=== PATIENT | female | born 1950 | race Caucasian/White ===

== ENCOUNTER 2016-07-12 08:23 | Day surgery (SDC) | payer MEDICARE, MEDICAID ==
[2016-07-12] MEDS ORDERED: LACTATED RINGERS 1,000 ML IV ONE (08:29)
[2016-07-12] MEDS ORDERED: MIDAZOLAM 2 MG/2 ML VIAL IVP ONE (09:50)
[2016-07-12] MEDS ORDERED: fentaNYL 2,500 MCG/50 ML VIAL IV ONE (09:50)
== END 2016-07-12 08:24 | disposition home or self-care (01) ==
PROC: 0DBL8ZX Excision of Transverse Colon, Via Natural or Artificial Opening Endoscopic, Diagnostic (ICD-10-PCS; 2016-07-12)
PROC: 0DBK8ZX Excision of Ascending Colon, Via Natural or Artificial Opening Endoscopic, Diagnostic (ICD-10-PCS; principal; 2016-07-12 09:45)
DX: Z12.11 Encounter for screening for malignant neoplasm of colon (principal); D12.2 Benign neoplasm of ascending colon; D12.3 Benign neoplasm of transverse colon; K64.8 Other hemorrhoids; Z79.82 Long term (current) use of aspirin; I10 Essential (primary) hypertension; E66.9 Obesity, unspecified; Z68.42 Body mass index [BMI] 45.0-49.9, adult; Z90.49 Acquired absence of other specified parts of digestive tract; E78.5 Hyperlipidemia, unspecified; E11.9 Type 2 diabetes mellitus without complications; Z79.84 Long term (current) use of oral hypoglycemic drugs; Z80.9 Family history of malignant neoplasm, unspecified; Z82.49 Family history of ischemic heart disease and other diseases of the circulatory system
CPT/HCPCS: 45385; J3010; J7120

== ENCOUNTER 2017-03-01 08:30 | Outpatient (CLI) | payer MEDICARE, MEDICAID ==
[2017-03-01 12:58] LABS: BASOPHILS # (AUTO) 0.1 10^3/uL (0.0-0.1); BASOPHILS % (AUTO) 0.8 %; EOSINOPHILS # (AUTO) 0.2 10^3/uL (0.0-0.7); HCT - HEMATOCRIT 36.9 % (37.0-47.0); HGB - HEMOGLOBIN 12.1 g/dL (12.0-16.0); LYMPHOCYTES # (AUTO) 1.8 10^3/uL (1.5-3.5); LYMPHOCYTES % (AUTO) 24.4 %; MEAN CORPUSCULAR HEMOGLOBIN 27.5 pg (27.0-31.0); MEAN CORPUSCULAR HGB CONC 32.7 g/dL (32.0-36.0); MEAN CORPUSCULAR VOLUME 84.1 fL (81.0-99.0); MEAN PLATELET VOLUME 7.7 fL (7.9-10.8); MONOCYTES # (AUTO) 0.5 10^3/uL (0.0-1.0); NEUTROPHILS # (AUTO) 4.9 10^3/uL (1.5-6.6); NEUTROPHILS % (AUTO) 65.8 %; RED BLOOD COUNT 4.39 10^6/uL (4.20-5.40); RED CELL DISTRIBUTION WIDTH 14.1 % (12.0-15.0); UNCORRECTED WHITE BLOOD COUNT 7.5 x10^3/uL; WHITE BLOOD COUNT 7.5 x10^3/uL (4.8-10.8)
[2017-03-01 13:30] LABS: ALBUMIN/GLOBULIN RATIO 1.1 (1.0-2.2); BILIRUBIN,TOTAL 0.7 mg/dL (0.2-1.0); BUN - BLOOD UREA NITROGEN 13 mg/dL (6-20); CALCIUM 9.1 mg/dL (8.5-10.3); CARBON DIOXIDE - CO2 28 mmol/L (21-32); CHLORIDE 102 mmol/L (101-111); CHOL/HDL RATIO 2.6 (<4.4); CHOLESTEROL 161 mg/dL; CREATININE 0.9 mg/dL (0.4-1.0); GFR - MDRD 62 (>89); GLUCOSE 116 mg/dL (70-100); HDL CHOLESTEROL 63 mg/dL; LDL/HDL RATIO 1.2 (<4.4); POTASSIUM 3.5 mmol/L (3.5-5.0); SODIUM 139 mmol/L (135-145); TOTAL PROTEIN 7.4 g/dL (6.7-8.2); TRIGLYCERIDES 120 mg/dL; VLDL CHOLESTEROL 24 mg/dL
[2017-03-01 13:34] LABS: HEMOGLOBIN A1C 0.51 g/dL
== END 2017-03-01 08:31 | disposition home or self-care (01) ==
LOC: LAB.WCP 08:30
PROVIDERS: ATTEND Family Medicine
DX: E11.9 Type 2 diabetes mellitus without complications (principal)
CPT/HCPCS: 36415; 80053; 80061; 82043; 83036; 84443; 85025

== ENCOUNTER 2017-03-15 10:43 | Outpatient (CLI) | payer MEDICARE, MEDICAID ==
--- NOTE | 2017-03-18 13:32 | Mammography Report ---
DIGITAL SCREENING MAMMOGRAM: 03/15/2017 CLINICAL INDICATION: A 66-year-old with family history of breast cancer, for screening. COMPARISON: 11/2015, 10/2014, 10/2013, 09/2011, 09/2010. TECHNIQUE: Routine CC and MLO projections were obtained of the breasts. FINDINGS: Scattered fibroglandular tissue is present within the breasts. There are no dominant yola s, suspicious microcalcifications, or secondary signs of malignancy. In comparison to the previous st udies, there are no significant changes. ASSESSMENT: NO MAMMOGRAPHIC EVIDENCE OF MALIGNANCY. NO SIGNIFICANT INTERVAL CHANGES. RECOMMENDATION: Screening mammography is recommended annually. BIRADS category 1 - negative. STANDARD QUALIFYING STATEMENTS 1. This examination was reviewed with the aid of Computed-Aided Detection (CAD). 2. A negative or benign imaging report should not delay biopsy if clinically suspicious findings are present. Consider surgical consultation if warranted. More than 5% of cancers are not identified by i maging. 3. Dense breasts may obscure an underlying neoplasm. JOB #: [id number] EXT JOB #:[id number]
== END 2017-03-15 10:44 | disposition home or self-care (01) ==
LOC: DI.N 10:43
PROVIDERS: ATTEND Family Medicine
DX: Z12.31 Encounter for screening mammogram for malignant neoplasm of breast (principal); Z80.3 Family history of malignant neoplasm of breast
CPT/HCPCS: 77067

== ENCOUNTER 2017-12-23 14:15 | Outpatient (CLI) | payer MEDICARE, MEDICAID ==
[2017-12-23 19:06] LABS: BILIRUBIN,URINE NEGATIVE (NEGATIVE); GLUCOSE, URINE (UA) NEGATIVE (NEGATIVE); KETONES,URINE (UA) NEGATIVE (NEGATIVE); LEUKOCYTE ESTERASE, URINE NEGATIVE (NEGATIVE); NITRITE,URINE NEGATIVE (NEGATIVE); OCCULT BLOOD,URINE MODERATE (NEGATIVE); PROTEIN,URINE TRACE mg/dL (NEGATIVE); UROBILINOGEN,URINE 0.2 (NORMAL) E.U./dL (NORMAL)
[2017-12-23 19:09] LABS: BASOPHILS # (AUTO) 0.1 10^3/uL (0.0-0.1); BASOPHILS % (AUTO) 1.1 %; EOSINOPHILS # (AUTO) 0.1 10^3/uL (0.0-0.7); EOSINOPHILS % (AUTO) 1.4 %; HGB - HEMOGLOBIN 12.5 g/dL (12.0-16.0); LYMPHOCYTES # (AUTO) 1.5 10^3/uL (1.5-3.5); LYMPHOCYTES % (AUTO) 18.9 %; MEAN CORPUSCULAR HEMOGLOBIN 28.3 pg (27.0-31.0); MEAN CORPUSCULAR HGB CONC 33.1 g/dL (32.0-36.0); MEAN CORPUSCULAR VOLUME 85.6 fL (81.0-99.0); MEAN PLATELET VOLUME 8.3 fL (7.9-10.8); MONOCYTES # (AUTO) 0.5 10^3/uL (0.0-1.0); MONOCYTES % (AUTO) 6.1 %; NEUTROPHILS # (AUTO) 5.8 10^3/uL (1.5-6.6); NEUTROPHILS % (AUTO) 72.5 %; PLT - PLATELET COUNT 278 10^3/uL (130-450); RED BLOOD COUNT 4.41 10^6/uL (4.20-5.40)
[2017-12-23 19:47] LABS: ALBUMIN 3.9 g/dL (3.2-5.5); ALBUMIN/GLOBULIN RATIO 1.1 (1.0-2.2); ALKALINE PHOSPHATASE 52 IU/L (42-121); ALT ALANINE AMINOTRANSFERASE 13 IU/L (10-60); AST ASPARTATE AMINOTRANSFERASE 16 IU/L (10-42); BILIRUBIN,TOTAL 0.9 mg/dL (0.2-1.0); BUN - BLOOD UREA NITROGEN 12 mg/dL (6-20); CARBON DIOXIDE - CO2 29 mmol/L (21-32); CHLORIDE 100 mmol/L (101-111); CHOL/HDL RATIO 2.6 (<4.4); CHOLESTEROL 152 mg/dL; GFR - MDRD 55 (>89); GLUCOSE 115 mg/dL (70-100); HDL CHOLESTEROL 58 mg/dL; LDL CHOLESTEROL,CALCULATED 77 mg/dL; LDL/HDL RATIO 1.3 (<4.4); SODIUM 139 mmol/L (135-145); TOTAL PROTEIN 7.5 g/dL (6.7-8.2); VLDL CHOLESTEROL 17 mg/dL
[2017-12-23 20:45] LABS: CLARITY,URINE CLOUDY (CLEAR)
[2017-12-23 20:46] LABS: AMORPHOUS SEDIMENT,UR Marked /LPF; BACTERIA,URINE None Seen /HPF (None Seen); RBC,URINE None Seen /HPF (0-5); SQUAMOUS EPITHELIAL CELL,UR NONE SEEN (<= Few)
[2017-12-23 21:05] LABS: HB2 TOTAL 13.6 g/dL; HEMOGLOBIN A1C 0.65 g/dL; HEMOGLOBIN A1C % 6.5 % (4.6-6.2)
== END 2017-12-23 14:16 ==
LOC: LAB.WCP 14:15
PROVIDERS: ATTEND Family Medicine
DX: E11.9 Type 2 diabetes mellitus without complications (principal); R60.9 Edema, unspecified
CPT/HCPCS: 36415; 80053; 80061; 81001; 83036; 83721; 84443; 85025

== ENCOUNTER 2018-01-02 08:00 | Outpatient (CLI) | payer MEDICARE, MEDICAID ==
[2018-01-02 13:25] LABS: BILIRUBIN,URINE NEGATIVE (NEGATIVE); GLUCOSE, URINE (UA) NEGATIVE (NEGATIVE); KETONES,URINE (UA) NEGATIVE (NEGATIVE); LEUKOCYTE ESTERASE, URINE NEGATIVE (NEGATIVE); NITRITE,URINE NEGATIVE (NEGATIVE); OCCULT BLOOD,URINE SMALL (NEGATIVE); PROTEIN,URINE NEGATIVE (NEGATIVE); UROBILINOGEN,URINE 0.2 (NORMAL) E.U./dL (NORMAL)
[2018-01-02 13:40] LABS: CLARITY,URINE CLOUDY (CLEAR)
[2018-01-02 13:41] LABS: AMORPHOUS SEDIMENT,UR Marked /LPF; BACTERIA,URINE None Seen /HPF (None Seen); RBC,URINE None Seen /HPF (0-5); SQUAMOUS EPITHELIAL CELL,UR NONE SEEN (<= Few)
== END 2018-01-02 08:01 | disposition home or self-care (01) ==
LOC: LAB.WCP 08:00
PROVIDERS: ATTEND Family Medicine
DX: R31.9 Hematuria, unspecified (principal)
CPT/HCPCS: 81001

== ENCOUNTER 2019-01-16 08:00 | Outpatient (CLI) | payer MEDICARE, MEDICAID ==
[2019-01-16 12:38] LABS: BASOPHILS # (AUTO) 0.1 10^3/uL (0.0-0.1); BASOPHILS % (AUTO) 0.7 %; EOSINOPHILS # (AUTO) 0.1 10^3/uL (0.0-0.7); EOSINOPHILS % (AUTO) 1.3 %; HGB - HEMOGLOBIN 11.9 g/dL (12.0-16.0); LYMPHOCYTES # (AUTO) 1.4 10^3/uL (1.5-3.5); LYMPHOCYTES % (AUTO) 17.9 %; MEAN CORPUSCULAR HGB CONC 30.9 g/dL (32.0-36.0); MEAN CORPUSCULAR VOLUME 90.6 fL (81.0-99.0); MEAN PLATELET VOLUME 9.9 fL (7.9-10.8); MONOCYTES # (AUTO) 0.5 10^3/uL (0.0-1.0); NEUTROPHILS # (AUTO) 5.6 10^3/uL (1.5-6.6); NEUTROPHILS % (AUTO) 73.6 %; PLT - PLATELET COUNT 299 10^3/uL (130-450); RED BLOOD COUNT 4.25 10^6/uL (4.20-5.40); RED CELL DISTRIBUTION WIDTH 13.2 % (12.0-15.0); WHITE BLOOD COUNT 7.6 x10^3/uL (4.8-10.8)
[2019-01-16 13:01] LABS: HB2 TOTAL 12.4 g/dL; HEMOGLOBIN A1C 0.52 g/dL
[2019-01-16 13:10] LABS: ALBUMIN 3.7 g/dL (3.2-5.5); ALKALINE PHOSPHATASE 49 IU/L (42-121); ALT ALANINE AMINOTRANSFERASE 10 IU/L (10-60); AST ASPARTATE AMINOTRANSFERASE 14 IU/L (10-42); BILIRUBIN,TOTAL 0.6 mg/dL (0.2-1.0); BUN - BLOOD UREA NITROGEN 15 mg/dL (6-20); CARBON DIOXIDE - CO2 31 mmol/L (21-32); CHLORIDE 100 mmol/L (101-111); CHOL/HDL RATIO 2.7 (<4.4); CHOLESTEROL 168 mg/dL; GFR - MDRD 55 (>89); GLUCOSE 120 mg/dL (70-100); HDL CHOLESTEROL 62 mg/dL; LDL CHOLESTEROL,CALCULATED 86 mg/dL; LDL/HDL RATIO 1.4 (<4.4); SODIUM 140 mmol/L (135-145); TOTAL PROTEIN 7.5 g/dL (6.7-8.2); VLDL CHOLESTEROL 20 mg/dL
== END 2019-01-16 23:59 | disposition home or self-care (01) ==
LOC: LAB.WCP 08:00
PROVIDERS: ATTEND Family Medicine
DX: E11.9 Type 2 diabetes mellitus without complications (principal)
CPT/HCPCS: 36415; 80053; 80061; 83036; 83721; 84443; 85025

== ENCOUNTER 2019-02-09 07:53 | Outpatient (CLI) | payer MEDICARE, MEDICAID ==
--- NOTE | 2019-02-09 16:46 | Mammography Report ---
Reason: ROUTINE MAMMO Procedure Date: 02/09/2019 Accession Number: [id number] / [id number] Procedure: NICK - Screening Mammo w/Mohamud CPT Code: FULL RESULT: EXAM: Screening Mammo w/Mohamud DATE: 02/09/2019 8:31 AM CLINICAL HISTORY: Routine screening. No reported personal history of breast cancer. Family history breast cancer in mother at age 60. TECHNIQUE: (B) - Bilateral CC and MLO views were obtained. COMPARISON: None PARENCHYMAL PATTERN: (A) - The breasts demonstrate scattered fibroglandular densities bilaterally. FINDINGS: Bilateral breasts: There are no suspicious masses, calcifications, or areas of distortion. IMPRESSION: Negative examination. BI-RADS category 1. RECOMMENDATION: (ANNUAL) - Recommend routine annual screening mammography. BI-RADS CATEGORY: (1) - Negative. STANDARD QUALIFYING STATEMENTS: 1. This examination was not reviewed with the aid of Computer-Aided Detection (CAD). 2. A negative or benign imaging report should not preclude biopsy if clinically suspicious findings are present. 3. Dense breasts may obscure an underlying neoplasm. 4. This examination was reviewed with the aid of 3D breast imaging (tomosynthesis).
== END 2019-02-09 07:54 | disposition home or self-care (01) ==
LOC: DI 07:53
DX: Z12.31 Encounter for screening mammogram for malignant neoplasm of breast (principal); Z80.3 Family history of malignant neoplasm of breast
CPT/HCPCS: 77063; 77067

== ENCOUNTER 2019-02-09 07:57 | Outpatient (CLI) | payer MEDICARE, MEDICAID ==
--- NOTE | 2019-02-10 17:06 | DEXA Report ---
Reason: POSTMENOPAUSAL Procedure Date: 02/09/2019 Accession Number: [id number] / [id number] Procedure: DEX - Dexa Spine and/or Hip CPT Code: FULL RESULT: EXAM: Dexa Spine and/or Hip DATE: 02/09/2019 8:50 AM CLINICAL HISTORY: POSTMENOPAUSAL TECHNIQUE: Dual energy x-ray absorptiometry (DXA) was performed on a [email or web address] System. Regions measured are the AP Spine, femoral neck, and if needed forearm. COMPARISON: None. In accordance with the International Society for Clinical Densitometry (ISCD) guidelines, data from previous exams may be reanalyzed using current recommendations and techniques. This is done to allow a more accurate basis for comparison with the current study. FINDINGS: The data for the lumbar spine is as follows: BMD (g/cm/cm) T-SCORE Z-SCORE REGION L1 1.191 0.5 1.0 L2 1.287 0.7 1.2 L3 1.246 0.4 0.9 L4 1.334 1.1 1.6 TOTAL 1.269 0.7 1.2 NOTE: All evaluable vertebrae are used for classification The data for the hip is as follows: BMD (g/cm/cm) T-SCORE Z-SCORE REGION Neck 0.909 -0.9 0.0 TOTAL 1.032 0.2 0.8 NOTE: The femoral neck or total proximal femur, whichever is lowest, is used for classification. IMPRESSION: THE WHO CLASSIFICATION BASED ON THE INTERNATIONAL REFERENCE STANDARD IS NORMAL. THE FRACTURE RISK IS NOT INCREASED. RECOMMENDATION: Patients with diagnosis of osteoporosis or osteopenia should have regular bone mineral density assessment. For those eligible for Medicare, routine testing is allowed once every 2 years. Testing frequency can be increased for patients who have rapidly progressing disease or for those who are receiving medical therapy to restore bone mass. COMMENT: World Health Organization (WHO) definitions for osteoporosis and osteopenia: NORMAL BMD: T-score at -1.0 or higher, fracture risk is low OSTEOPENIA BMD: T-score between -1.0 and -2.5, fracture risk is increased. OSTEOPOROSIS BMD: T-score at -2.5 or lower, fracture risk is high. National Osteoporosis Foundation recommends: 1. Obtain adequate dietary calcium (at least 1200 mg per day) and vitamin D (400-800 international units per day). 2. Participate, as appropriate, in regular weightbearing and muscle-strengthening exercise. 3. Avoid tobacco use and reduce alcohol and caffeine intake. 4. For more detailed information see the website at www.NOF.org.
== END 2019-02-09 07:58 | disposition home or self-care (01) ==
LOC: DI 07:57
PROVIDERS: ATTEND Family Medicine
DX: Z78.0 Asymptomatic menopausal state (principal)
CPT/HCPCS: 77080

== ENCOUNTER 2019-07-06 10:15 | Outpatient (CLI) | payer MEDICARE, MEDICAID ==
[2019-07-06 14:37] LABS: MUDS CUTOFF CONCENTRATIONS CUTOFF CONC BELOW:
[2019-07-06 19:00] LABS: AMPHETAMINE SCREEN,URINE NEGATIVE (NEGATIVE); BENZODIAZEPINES SCREEN, URINE NEGATIVE (NEGATIVE); COCAINE SCREEN URINE NEGATIVE (NEGATIVE); METHADONE SCREEN, URINE NEGATIVE (NEGATIVE); METHAMPHETAMINES SCREEN, URINE NEGATIVE (NEGATIVE); OPIATE SCREEN, URINE POSITIVE (NEGATIVE); OXYCODONE SCREEN, URINE NEGATIVE (NEGATIVE); PROPOXYPHENE SCREEN, URINE NEGATIVE (NEGATIVE); TRICYCLIC ANTIDEPRESSANT,URINE NEGATIVE (NEGATIVE)
== END 2019-07-06 23:59 | disposition home or self-care (01) ==
LOC: LAB.WCP 10:15
PROVIDERS: ATTEND Family Medicine
DX: Z79.891 Long term (current) use of opiate analgesic (principal)
CPT/HCPCS: 80306

== ENCOUNTER 2019-09-29 08:00 | Outpatient (CLI) | payer MEDICARE, MEDICAID | END 2019-09-29 23:59 | disposition home or self-care (01) | LOC: LAB.R 08:00 | PROVIDERS: ATTEND Physician Assistant Medical | DX: L03.116 Cellulitis of left lower limb (principal) | CPT/HCPCS: 87070; 87205 ==

== ENCOUNTER 2019-10-09 14:25 | Outpatient (CLI) | payer MEDICARE, MEDICAID ==
--- NOTE | 2019-10-09 15:25 | XRAY Report ---
Reason: DYSPNEA ON EXERTION Procedure Date: 10/09/2019 Accession Number: [id number] / [id number] Procedure: WCP - Chest 2 View X-Ray CPT Code: 54733 Final Report FULL RESULT: PROCEDURE: Chest 2 View X-Ray INDICATIONS: DYSPNEA ON EXERTION TECHNIQUE: 2 view(s) of the chest. COMPARISON: None. FINDINGS: Surgical changes and devices: None. Lungs and pleura: No pleural effusions or pneumothorax. Lungs are clear. Mediastinum: Mediastinal contours are normal. Heart size is enlarged. Bones and chest wall: No suspicious bony abnormalities. Soft tissues appear unremarkable. IMPRESSION: No acute cardiopulmonary pathology. Reviewed by: Chele Hamilton MD on 10/09/2019 3:23 PM PDT Approved by: Chele Hamilton MD on 10/09/2019 3:23 PM PDT Station ID: [id number]
[2019-10-09 18:48] LABS: BASOPHILS # (AUTO) 0.1 10^3/uL (0.0-0.1); BASOPHILS % (AUTO) 0.7 %; EOSINOPHILS # (AUTO) 0.1 10^3/uL (0.0-0.7); EOSINOPHILS % (AUTO) 1.1 %; HGB - HEMOGLOBIN 11.2 g/dL (12.0-16.0); LYMPHOCYTES # (AUTO) 1.5 10^3/uL (1.5-3.5); LYMPHOCYTES % (AUTO) 16.5 %; MEAN CORPUSCULAR HGB CONC 30.2 g/dL (32.0-36.0); MEAN CORPUSCULAR VOLUME 92.8 fL (81.0-99.0); MEAN PLATELET VOLUME 10.3 fL (7.9-10.8); MONOCYTES # (AUTO) 0.5 10^3/uL (0.0-1.0); NEUTROPHILS # (AUTO) 6.6 10^3/uL (1.5-6.6); NEUTROPHILS % (AUTO) 75.4 %; PLT - PLATELET COUNT 292 10^3/uL (130-450); RED CELL DISTRIBUTION WIDTH 13.4 % (12.0-15.0); WHITE BLOOD COUNT 8.8 x10^3/uL (4.8-10.8)
[2019-10-09 18:49] LABS: HEMOGLOBIN A1C 0.49 g/dL
[2019-10-09 19:04] LABS: BUN - BLOOD UREA NITROGEN 16 mg/dL (6-20); CALCIUM 8.8 mg/dL (8.5-10.3); CARBON DIOXIDE - CO2 29 mmol/L (21-32); CHLORIDE 101 mmol/L (101-111); CHOL/HDL RATIO 2.5 (<4.4); CHOLESTEROL 166 mg/dL; CREATININE 1.1 mg/dL (0.4-1.0); GLUCOSE 108 mg/dL (70-100); HDL CHOLESTEROL 67 mg/dL; LDL CHOLESTEROL,CALCULATED 83 mg/dL; LDL/HDL RATIO 1.2 (<4.4); SODIUM 139 mmol/L (135-145); VLDL CHOLESTEROL 16 mg/dL
[2019-10-09 20:01] LABS: HB2 TOTAL 11.6 g/dL
== END 2019-10-09 14:26 | disposition home or self-care (01) ==
LOC: DI.WCP 14:25
PROVIDERS: ATTEND Family Medicine
DX: R06.09 Other forms of dyspnea (principal); E11.9 Type 2 diabetes mellitus without complications; I10 Essential (primary) hypertension
CPT/HCPCS: 36415; 71046; 80048; 80061; 83036; 83721; 83880; 84443; 85025

== ENCOUNTER 2019-10-24 00:14 | Emergency (ER) | payer MEDICARE, MEDICAID ==
--- NOTE | 2019-10-24 00:19 | ED Physician Documentation ---
History of Present Illness - Stated complaint Stated Complaint: SOA/LEG WOUND - History obtained from History obtained from: Patient (Patient is a 69-year-old female who presents with a chief complaint of shortness of breath and bilateral lower extremity swelling. She is currently being treated for cellulitis with Keflex on her left lower extremity according to the patient she has chronic lower extremity swelling) Review of Systems Constitutional: reports: Reviewed and negative Eyes: reports: Reviewed and negative Ears: reports: Reviewed and negative Nose: reports: Reviewed and negative Throat: reports: Reviewed and negative Cardiac: reports: Pedal edema Respiratory: reports: Dyspnea GI: reports: Reviewed and negative : reports: Reviewed and negative Skin: reports: Reviewed and negative Musculoskeletal: reports: Reviewed and negative Neurologic: reports: Reviewed and negative Psychiatric: reports: Reviewed and negative Endocrine: reports: Reviewed and negative Immunocompromised: reports: Reviewed and negative PD PAST MEDICAL HISTORY - Past Medical History Cardiovascular: Hypertension, High cholesterol, Murmur Respiratory: None Endocrine/Autoimmune: Type 2 diabetes GI: None : None HEENT: None Psych: None Musculoskeletal: Osteoarthritis Derm: None - Past Surgical History General: Cholecystectomy, Appendectomy Ortho: Knee replacement HEENT: Other - Present Medications Home Medications: Ambulatory Orders Medication Instructions Recorded Confirmed Furosemide [Lasix] 80 mg PO DAILY 09/09/14 07/12/16 Hydrocodone/Acetaminophen 1 tab PO Q6H PRN 09/09/14 07/12/16 [Hydrocodon-Acetaminophn 10-325] Metformin HCl 500 mg PO DAILY 09/09/14 07/12/16 Metoprolol Tartrate 50 mg PO BID 09/09/14 07/12/16 Potassium Chloride [K-Dur] 40 meq PO DAILY 09/09/14 07/12/16 Simvastatin 20 mg PO DAILY 09/09/14 07/12/16 Telmisartan [Micardis] 160 mg PO DAILY 09/09/14 07/12/16 Aspirin [Adult Low Dose Aspirin EC] 81 mg ORAL DAILY 07/11/16 07/11/16 - Allergies Allergies/Adverse Reactions: Allergies Allergy/AdvReac Type Severity Reaction Status Date / Time nystatin Allergy Severe Edema Verified 10/24/19 00:18 lisinopril AdvReac Intermediate Cough Verified 10/24/19 00:18 PD ED PE NORMAL - Vitals Vital signs reviewed: Yes - General General: Alert and oriented X 3, No acute distress, Other (Morbidly obese 69-year-old female in no distress) - HEENT HEENT: PERRL - Neck Neck: Supple, no meningeal sign, No JVD, No bruit - Cardiac Cardiac: RRR, No murmur, Strong equal pulses - Respiratory Respiratory: No respiratory distress, Clear bilaterally, Other (tachypneic, mild crackles at the bases) - Abdomen Abdomen: Normal bowel sounds, Soft, Non tender, Non distended, Other (Obese, no midline abdominal pulsatile mass is) - Derm Derm: Warm and dry - Extremities Extremities: Other (3+ pitting edema that is symmetrical to bilateral lower extremities diffuse chronic venous stasis changes there is honey crusted lesions on the posterior aspect of the left calf.) - Neuro Neuro: Alert and oriented X 3 - Psych Psych: Normal mood, Normal affect Results - Vitals Vitals: Vital Signs - 24 hr 10/24/19 10/24/19 10/24/19 00:18 00:35 00:42 Temperature 36.6 C Heart Rate 89 78 76 Respiratory 20 18 18 Rate Blood Pressure 165/100 H 111/86 H 111/86 H O2 Saturation 100 100 100 10/24/19 10/24/19 01:23 01:59 Temperature Heart Rate 74 81 Respiratory 17 20 Rate Blood Pressure 174/69 H 149/86 H O2 Saturation 100 100 Oxygen O2 Source [] Room air O2 Source Room air - EKG (time done) 00:55 Rate: Other (no stemi) - Labs Labs: Laboratory Tests 10/24/19 10/24/19 10/24/19 00:30 00:30 00:30 WBC 10.2 RBC 4.03 L Hgb 11.7 L Hct 37.1 MCV 92.1 MCH 29.0 MCHC 31.5 L RDW 12.8 Plt Count 269 MPV 9.8 Neut # (Auto) 7.5 H Lymph # (Auto) 1.9 Mclennan # (Auto) 0.6 Eos # (Auto) 0.2 Baso # (Auto) 0.1 Absolute Nucleated RBC 0.00 Nucleated RBC % 0.0 PT 11.3 INR 1.0 APTT 31.8 Sodium 137 Potassium 3.5 Chloride 97 L Carbon Dioxide 30 Anion Gap 10.0 BUN 19 Creatinine 1.4 H Estimated GFR (MDRD) 37 L Glucose 130 H Calcium 9.1 Magnesium 2.1 Total Bilirubin 0.3 AST 15 ALT 12 Alkaline Phosphatase 59 Total Creatine Kinase 55 Troponin I High Sens B-Natriuretic Peptide Total Protein 7.8 Albumin 4.0 Globulin 3.8 Albumin/Globulin Ratio 1.1 Lipase 27 TSH Urine Color Urine Clarity Urine pH Ur Specific Selmer Urine Protein Urine Glucose (UA) Urine Ketones Urine Occult Blood Urine Nitrite Urine Bilirubin Urine Urobilinogen Ur Leukocyte Esterase Urine RBC Urine WBC Ur Squamous Epith Cells Urine Bacteria Ur Microscopic Review Urine Culture Comments Ethyl Alcohol < 5.0 10/24/19 10/24/19 10/24/19 00:30 00:30 00:30 WBC RBC Hgb Hct MCV MCH MCHC RDW Plt Count MPV Neut # (Auto) Lymph # (Auto) Mclennan # (Auto) Eos # (Auto) Baso # (Auto) Absolute Nucleated RBC Nucleated RBC % PT INR APTT Sodium Potassium Chloride Carbon Dioxide Anion Gap BUN Creatinine Estimated GFR (MDRD) Glucose Calcium Magnesium Total Bilirubin AST ALT Alkaline Phosphatase Total Creatine Kinase Troponin I High Sens 9.2 B-Natriuretic Peptide 173 H Total Protein Albumin Globulin Albumin/Globulin Ratio Lipase TSH 2.47 Urine Color Urine Clarity Urine pH Ur Specific Selmer Urine Protein Urine Glucose (UA) Urine Ketones Urine Occult Blood Urine Nitrite Urine Bilirubin Urine Urobilinogen Ur Leukocyte Esterase Urine RBC Urine WBC Ur Squamous Epith Cells Urine Bacteria Ur Microscopic Review Urine Culture Comments Ethyl Alcohol 10/24/19 01:20 WBC RBC Hgb Hct MCV MCH MCHC RDW Plt Count MPV Neut # (Auto) Lymph # (Auto) Mclennan # (Auto) Eos # (Auto) Baso # (Auto) Absolute Nucleated RBC Nucleated RBC % PT INR APTT Sodium Potassium Chloride Carbon Dioxide Anion Gap BUN Creatinine Estimated GFR (MDRD) Glucose Calcium Magnesium Total Bilirubin AST ALT Alkaline Phosphatase Total Creatine Kinase Troponin I High Sens B-Natriuretic Peptide Total Protein Albumin Globulin Albumin/Globulin Ratio Lipase TSH Urine Color YELLOW Urine Clarity CLEAR Urine pH 6.5 Ur Specific Selmer 1.020 Urine Protein 100 H Urine Glucose (UA) NEGATIVE Urine Ketones TRACE Urine Occult Blood LARGE H Urine Nitrite NEGATIVE Urine Bilirubin NEGATIVE Urine Urobilinogen 1 (NORMAL) Ur Leukocyte Esterase NEGATIVE Urine RBC 6-10 H Urine WBC 0-3 Ur Squamous Epith Cells RARE Squamous Urine Bacteria Rare Ur Microscopic Review INDICATED Urine Culture Comments NOT INDICATED Ethyl Alcohol PD MEDICAL DECISION MAKING - ED course Complexity details: considered differential (chf) Departure - Departure Disposition: 01 Home, Self Care Clinical Impression: Congestive heart failure Qualifiers: Heart failure type: other Qualified Code(s): I50.9 - Heart failure, unspecified Condition: Stable Instructions: Heart Failure Dc Follow-Up: Vanesa Ruff DO [Primary Care Provider] - Tomorrow Comments: Continue to take your medications as directed by your primary care provider. Call your primary care provider on Saturday for follow-up.
[2019-10-24 01:01] LABS: BASOPHILS # (AUTO) 0.1 10^3/uL (0.0-0.1); BASOPHILS % (AUTO) 0.6 %; EOSINOPHILS # (AUTO) 0.2 10^3/uL (0.0-0.7); EOSINOPHILS % (AUTO) 1.9 %; HGB - HEMOGLOBIN 11.7 g/dL (12.0-16.0); LYMPHOCYTES # (AUTO) 1.9 10^3/uL (1.5-3.5); LYMPHOCYTES % (AUTO) 18.4 %; MEAN CORPUSCULAR HGB CONC 31.5 g/dL (32.0-36.0); MEAN CORPUSCULAR VOLUME 92.1 fL (81.0-99.0); MEAN PLATELET VOLUME 9.8 fL (7.9-10.8); MONOCYTES # (AUTO) 0.6 10^3/uL (0.0-1.0); MONOCYTES % (AUTO) 5.5 %; NEUTROPHILS # (AUTO) 7.5 10^3/uL (1.5-6.6); NEUTROPHILS % (AUTO) 73.1 %; PLT - PLATELET COUNT 269 10^3/uL (130-450); RED BLOOD COUNT 4.03 10^6/uL (4.20-5.40); RED CELL DISTRIBUTION WIDTH 12.8 % (12.0-15.0); WHITE BLOOD COUNT 10.2 x10^3/uL (4.8-10.8)
[2019-10-24 01:11] LABS: PT - PROTHROMBIN TIME 11.3 secs (9.9-12.6)
[2019-10-24 01:12] LABS: ALBUMIN/GLOBULIN RATIO 1.1 (1.0-2.2); ALKALINE PHOSPHATASE 59 IU/L (42-121); ALT ALANINE AMINOTRANSFERASE 12 IU/L (10-60); AST ASPARTATE AMINOTRANSFERASE 15 IU/L (10-42); BILIRUBIN,TOTAL 0.3 mg/dL (0.2-1.0); BUN - BLOOD UREA NITROGEN 19 mg/dL (6-20); CALCIUM 9.1 mg/dL (8.5-10.3); CARBON DIOXIDE - CO2 30 mmol/L (21-32); CHLORIDE 97 mmol/L (101-111); CK- CREATINE KINASE 55 IU/L (22-269); CREATININE 1.4 mg/dL (0.4-1.0); GLUCOSE 130 mg/dL (70-100); LIPASE 27 U/L (22-51); MAGNESIUM 2.1 mg/dL (1.7-2.8); SODIUM 137 mmol/L (135-145); TOTAL PROTEIN 7.8 g/dL (6.7-8.2)
[2019-10-24 01:19] LABS: PARTIAL THROMBOPLASTIN TIME 31.8 secs (24.9-33.3)
[2019-10-24] MEDS ORDERED: FUROSEMIDE 40 MG/4 ML VIAL IVP STA (01:48)
[2019-10-24 01:56] LABS: BILIRUBIN,URINE NEGATIVE (NEGATIVE); GLUCOSE, URINE (UA) NEGATIVE (NEGATIVE); KETONES,URINE (UA) TRACE mg/dL (NEGATIVE); LEUKOCYTE ESTERASE, URINE NEGATIVE (NEGATIVE); NITRITE,URINE NEGATIVE (NEGATIVE); OCCULT BLOOD,URINE LARGE (NEGATIVE); PH,URINE 6.5 PH (5.0-7.5); PROTEIN,URINE 100 mg/dL (NEGATIVE); UROBILINOGEN,URINE 1 (NORMAL) E.U./dL (NORMAL)
[2019-10-24 02:02] LABS: CLARITY,URINE CLEAR (CLEAR)
[2019-10-24 02:12] LABS: BACTERIA,URINE Rare /HPF (None Seen); SQUAMOUS EPITHELIAL CELL,UR RARE Squamous (<= Few)
[2019-10-24 02:33] VITALS: BP 160/81
--- NOTE | 2019-10-24 09:15 | XRAY Report ---
PROCEDURE: Chest 1 View X-Ray INDICATIONS: sob TECHNIQUE: One view of the chest was acquired. COMPARISON: 10/09/2019 FINDINGS: Surgical changes and devices: None. Lungs and pleura: No pleural effusions or pneumothorax. Mild pulmonary vascular congestion and inter stitial edema is seen. No focal infiltrate. Mediastinum: Mediastinal contours appear normal. Heart size is enlarged. Bones and chest wall: No suspicious bony lesions. Overlying soft tissues appear unremarkable. IMPRESSION: Mild CHF changes. No focal infiltrate. No discrepancies. Reviewed by: Chele Hamilton MD on 10/24/2019 9:13 AM PDT Approved by: Chele Hamilton MD on 10/24/2019 9:13 AM PDT Station ID: [id number]
== END 2019-10-24 02:33 | disposition home or self-care (01) ==
LOC: ED 00:14
DX: I11.0 Hypertensive heart disease with heart failure (principal); I50.9 Heart failure, unspecified; I87.8 Other specified disorders of veins; L03.116 Cellulitis of left lower limb; E11.9 Type 2 diabetes mellitus without complications; Z79.84 Long term (current) use of oral hypoglycemic drugs; Z79.82 Long term (current) use of aspirin; E66.01 Morbid (severe) obesity due to excess calories; Z68.43 Body mass index [BMI] 50.0-59.9, adult
CPT/HCPCS: 36415; 71045; 80053; 80320; 81001; 81003; 82550; 83690; 83735; 83880; 84443; 84484; 85025; 85610; 85730; 87086; 93005; 96374; 99284

== ENCOUNTER 2019-11-10 10:02 | Outpatient (CLI) | payer MEDICARE, MEDICAID | END 2019-11-10 10:03 | disposition home or self-care (01) | LOC: DI 10:02 | PROVIDERS: ATTEND Family Medicine | DX: R06.09 Other forms of dyspnea (principal); I08.0 Rheumatic disorders of both mitral and aortic valves; I27.20 Pulmonary hypertension, unspecified | CPT/HCPCS: 93306 ==

== ENCOUNTER 2019-12-10 10:36 | Outpatient (CLI) | payer MEDICARE, MEDICAID ==
[2019-12-10] MEDS ORDERED: REGADENOSON 0.4 MG/5 ML SYRINGE IVP ONE (13:35)
--- NOTE | 2019-12-10 15:03 | CARDIAC PROCEDURE NOTE ---
DATE OF SERVICE: 12/10/2019 Physician: Alexa Orellana MD, FACC INDICATIONS Dyspnea on exertion, diabetes. CARDIAC RISK FACTORS Morbid obesity, diabetes, family history of heart disease, elevated cholesterol, hypertension, and advanced age. DESCRIPTION OF PROCEDURE After signing informed consent, the patient underwent a Lexiscan pharmaceutical stress test with nuclear myocardial perfusion imaging. RESTING HEART RATE: 69. PEAK HEART RATE: 94. RESTING BLOOD PRESSURE: 125/70. PEAK BLOOD PRESSURE: 146/70. Lexiscan was infused per protocol. The patient had brief shortness of breath and brief epigastric pressure, she had no chest pain or other symptoms. Oxygen saturation was 95-99% on room air throughout the test. RESTING EKG: Normal sinus rhythm, rate 69, PVC noted, otherwise within normal limits. EKG AT PEAK: No new ST segment or T-wave changes. SUMMARY 1. Essentially normal resting electrocardiogram except for a premature ventricular contraction. 2. No ischemic changes by EKG criteria on this pharmaceutical stress test. 3. Nuclear images reported separately. 4. This patient's cardiac risk based on all the above: Moderate. TD: 12/10/2019 14:39 MTDD
--- NOTE | 2019-12-13 13:24 | Nuclear Medicine Report ---
PROCEDURE: Rest and exercise myocardial perfusion SPECT with gated imaging and ejection fraction INDICATIONS: VASQUEZ, OBESITY, DM RADIOPHARMACEUTICAL: 20.0 mCi Tc-99m Myoview IV at rest and 21.7 mCi Tc-99m Myoview IV at peak exerc ise. A [id number] was performed. TECHNIQUE: Radiopharmaceutical was injected at peak stress test, and also at rest. SPECT images wer e obtained. SPECT myocardial perfusion images were displayed in short axis, horizontal long axis, an d vertical long axis views. Gated images were reviewed using Auto[employer] software. COMPARISON: None available. FINDINGS: Raw data: There is good myocardial labeling by radiotracer. No significant motion artifacts. Lung- to-heart ratio is (normal is less than 0.38 for tetrafosmin tracer). Left ventricle function: Gated images demonstrate normal left ventricle wall thickening. No segment al wall motion abnormality. No transient ischemic dilation. The left ventricle resting end-diastolic volume is normal. Left ventricle stress ejection fraction is >70%; normal values are above 45%. Myocardial perfusion: There is normal distribution of activity in the left upper myocardium. No rev ersible fixed perfusion defects to suggest myocardial ischemia or infarct. IMPRESSION: 1. Normal myocardial perfusion images. 2. Normal left ventricular volume and systolic function. PQRS ATTESTATIONS: Measure 322 - Is this imaging test primarily performed on a low-risk surgery patient for preoperative evaluation within 30 days preceding their low-risk non-cardiac surgery? Low-risk surgery is defined as cardiac or myocardial infarction less than 1%, including (but not limited to) endoscopic pr ocedures, superficial procedures, cataract surgery, and excisional breast surgery: Answer: No Measure 323 - Is this imaging test performed primarily for the monitoring of an asymptomatic patient who had percutaneous coronary intervention on the visit date or within 2 years of the visit date? An swer: No Measure 324 - Is this imaging test performed primarily for the initial detection and risk assessment on an asymptomatic, low coronary heart disease patient? Low CHD risk definition = clinicians should consider the maximum number of available patient factors used to estimate risk based on Vaughn (A TP III criteria), typically age, gender, diabetes, smoking status, and use of blood pressure medicati on, and integrate age appropriate estimates for missing elements, such as LDL or standard blood press ure. Answer: No Reviewed by: Javier Olsen MD on 12/13/2019 1:22 PM PDT Approved by: Javier Olsen MD on 12/13/2019 1:22 PM PDT Station ID: [id number]
== END 2019-12-10 10:37 | disposition home or self-care (01) ==
LOC: DI 10:36
PROVIDERS: ATTEND Family Medicine
DX: R06.09 Other forms of dyspnea (principal); E66.01 Morbid (severe) obesity due to excess calories; E11.9 Type 2 diabetes mellitus without complications; I10 Essential (primary) hypertension; E78.00 Pure hypercholesterolemia, unspecified; Z82.49 Family history of ischemic heart disease and other diseases of the circulatory system
CPT/HCPCS: 78452; 93016; 93017; 93018; A9500; J2785

== ENCOUNTER 2020-04-26 08:00 | Outpatient (CLI) | payer MEDICARE, MEDICAID ==
[2020-04-26 13:53] LABS: ALBUMIN 3.7 g/dL (3.2-5.5); ALKALINE PHOSPHATASE 56 IU/L (42-121); ALT ALANINE AMINOTRANSFERASE 11 IU/L (10-60); AST ASPARTATE AMINOTRANSFERASE 16 IU/L (10-42); BILIRUBIN,TOTAL 0.6 mg/dL (0.2-1.0); BUN - BLOOD UREA NITROGEN 16 mg/dL (6-20); CALCIUM 9.1 mg/dL (8.5-10.3); CARBON DIOXIDE - CO2 28 mmol/L (21-32); CHLORIDE 101 mmol/L (101-111); CHOL/HDL RATIO 2.9 (<4.4); CHOLESTEROL 170 mg/dL; CREATININE 0.9 mg/dL (0.4-1.0); GLUCOSE 106 mg/dL (70-100); HDL CHOLESTEROL 59 mg/dL; LDL CHOLESTEROL,CALCULATED 79 mg/dL; LDL/HDL RATIO 1.3 (<4.4); SODIUM 141 mmol/L (135-145); TOTAL PROTEIN 7.4 g/dL (6.7-8.2); VLDL CHOLESTEROL 32 mg/dL
[2020-04-26 14:05] LABS: HEMOGLOBIN A1c% 5.7 % (4.27-6.07)
[2020-04-26 14:08] LABS: CREATININE,URINE 322.8 mg/dL; MICROALBUM/CREATININE RATIO,UR 6.8 ug/mg (<30.0); MICROALBUMIN,URINE 2.2 mg/dL (0-300.0)
== END 2020-04-26 23:59 | disposition home or self-care (01) ==
LOC: LAB.WCP 08:00
PROVIDERS: ATTEND Physician Assistant Medical
DX: E11.9 Type 2 diabetes mellitus without complications (principal)
CPT/HCPCS: 36415; 80053; 80061; 82043; 82570; 83036; 83721

== ENCOUNTER 2020-06-21 11:18 | Outpatient (CLI) | payer MEDICARE, MEDICAID ==
--- NOTE | 2020-06-21 16:18 | XRAY Report ---
PROCEDURE: Hand 3 View BILAT INDICATIONS: NECK PAIN LOW BACK PAIN, ARTHRITIS HAND TECHNIQUE: 2 views of the hand(s) acquired. COMPARISON: None FINDINGS: Bones: No fractures or dislocations. No suspicious bony lesions. There are moderate to severe bila teral IP degenerative narrowing. The left hand demonstrates most severe narrowing at the third and fi fth DIP joints with areas of subchondral/periarticular lucency. Similar less prominent appearance is noted at the other digits. The right hand demonstrates most severe narrowing at the DIP joints of the third through fifth digits with small periarticular osteophytes as well as paratracheal or lucencies . Additional areas of scattered lucency are also noted at the IP joints. Soft tissues: No suspicious soft tissue calcifications. IMPRESSION: 1. Bilateral areas of IP arthritic narrowing with areas of osteophyte and subchondral/periarticular l ucencies. The latter could be related to erosions versus subchondral cyst. Reviewed by: Virginie Figueroa MD on 06/21/2020 4:16 PM [facility] [place] Approved by: Virginie Figueroa MD on 06/21/2020 4:16 PM [facility] [place] Station ID: [id number]
--- NOTE | 2020-06-21 16:18 | XRAY Report ---
PROCEDURE: Cervical Spine 2 View INDICATIONS: NECK PAIN LOW BACK PAIN, ARTHRITIS HAND TECHNIQUE: 2 view(s) of the cervical spine were acquired. COMPARISON: None. FINDINGS: Bones: No fractures or dislocations to the C7-T1 level. The lateral masses of C1 appear intact on t he odontoid view. No suspicious bony lesions. There is mild disc space narrowing at C6-7, minimal t o mild throughout the remainder of the cervical spine. Multilevel uncovertebral arthropathy is presen t. No erosions are noted. Soft tissues: No prevertebral soft tissue swelling. IMPRESSION: Degenerative changes as above most prominent at C6-7. Reviewed by: Virginie Figueroa MD on 06/21/2020 4:17 PM PST Approved by: Virginie Figueroa MD on 06/21/2020 4:17 PM PST Station ID: [id number]
--- NOTE | 2020-06-21 16:19 | XRAY Report ---
PROCEDURE: Lumbar Spine 2 View INDICATIONS: NECK PAIN LOW BACK PAIN, ARTHRITIS HAND TECHNIQUE: 2 views of the lumbar spine were acquired. COMPARISON: None. FINDINGS: Bones: 5 [id number]-[id number]-iofrwwk vertebrae are present. There is trace retrolisthesis of L1 on L2, L2 on L3 , trace anterolisthesis of L3 on L4, L4 on L5. Moderate to severe disc space narrowing is present at L5-S1, mild to moderate throughout the remainder of the lumbar spine. There is moderate to severe for aminal narrowing at L5-S1, mild to moderate L3-4, L4-5. No vertebral body compression fractures. No suspicious bony lesions. Soft tissues: Overlying bowel gas pattern is normal. No suspicious soft tissue calcifications. IMPRESSION: Degenerative changes most notable at L5-S1. Reviewed by: Virginie Figueroa MD on 06/21/2020 4:18 PM PST Approved by: Virginie Figueroa MD on 06/21/2020 4:18 PM PST Station ID: [id number]
== END 2020-06-21 11:19 | disposition home or self-care (01) ==
LOC: DI 11:18
PROVIDERS: ATTEND Physician Assistant Medical
DX: M54.2 Cervicalgia (principal); M54.5 Low back pain; G89.29 Other chronic pain; M47.812 Spondylosis without myelopathy or radiculopathy, cervical region; M47.817 Spondylosis without myelopathy or radiculopathy, lumbosacral region; M19.042 Primary osteoarthritis, left hand; M19.041 Primary osteoarthritis, right hand

== ENCOUNTER 2020-06-28 11:31 | Outpatient (CLI) | payer MEDICARE, MEDICAID ==
--- NOTE | 2020-06-28 12:45 | Mammography Report ---
BILATERAL DIGITAL SCREENING MAMMOGRAM 3D/2D: 06/28/2020 CLINICAL: Family history of breast cancer. Routine screening. Comparison is made to exams dated: 02/09/2019 mammogram, 03/15/2017 mammogram, and 11/24/2015 mammogra m - [facility]. There are scattered fibroglandular elements in both breasts. No significant masses, calcifications, or other findings are seen in either breast. There has been no significant interval change. IMPRESSION: NEGATIVE There is no mammographic evidence of malignancy. A 1 year screening mammogram is recommended. This exam was interpreted at Station ID: [id number]. NOTE: For mammograms, a report in lay terms will be sent to the patient. Approximately 15% of breast malignancies will not be visualized mammographically. In the management of a palpable breast mass, a negative mammogram must not discourage biopsy of a clinically suspicious lesion. Electronically Signed By: Aisha goetz/penrad:06/28/2020 12:29:58 ACR BI-RADS Category 1: Negative 3341F PARENCHYMAL PATTERN: (A) - The breast(s) demonstrate(s) scattered fibroglandular densities. BI-RADS CATEGORY: (1) - 1 RECOMMENDATION: (ANNUAL) - Recommend routine annual screening mammography. [id number] 1 year screening LATERALITY: (B)
== END 2020-06-28 11:32 | disposition home or self-care (01) ==
LOC: DI.N 11:31
DX: Z12.31 Encounter for screening mammogram for malignant neoplasm of breast (principal); Z80.3 Family history of malignant neoplasm of breast

== ENCOUNTER 2020-10-14 10:42 | Outpatient (CLI) | payer MEDICARE, MEDICAID ==
[2020-10-14 18:07] LABS: ALBUMIN 3.5 g/dL (3.2-5.5); ALKALINE PHOSPHATASE 61 IU/L (42-121); ALT ALANINE AMINOTRANSFERASE 11 IU/L (10-60); AST ASPARTATE AMINOTRANSFERASE 16 IU/L (10-42); BILIRUBIN,TOTAL 0.5 mg/dL (0.2-1.0); BUN - BLOOD UREA NITROGEN 17 mg/dL (6-20); CALCIUM 9.1 mg/dL (8.5-10.3); CARBON DIOXIDE - CO2 29 mmol/L (21-32); CHLORIDE 99 mmol/L (101-111); CHOL/HDL RATIO 2.7 (<4.4); CHOLESTEROL 189 mg/dL; CREATININE 0.9 mg/dL (0.4-1.0); GFR - MDRD 62 (>89); GLUCOSE 108 mg/dL (70-100); HDL CHOLESTEROL 69 mg/dL; LDL CHOLESTEROL,CALCULATED 96 mg/dL; LDL/HDL RATIO 1.4 (<4.4); POTASSIUM 4.1 mmol/L (3.5-5.0); SODIUM 139 mmol/L (135-145); TOTAL PROTEIN 7.1 g/dL (6.7-8.2); TRIGLYCERIDES 122 mg/dL; VLDL CHOLESTEROL 24 mg/dL
[2020-10-14 20:31] LABS: ESTIMATED AVERAGE GLUCOSE 126 mg/dL (70-100)
== END 2020-10-14 23:59 | disposition home or self-care (01) ==
LOC: LAB.WCP 10:42
PROVIDERS: ATTEND Physician Assistant Medical
DX: E11.9 Type 2 diabetes mellitus without complications (principal)
CPT/HCPCS: 36415; 80053; 80061; 83036; 83721

== ENCOUNTER 2020-12-19 09:00 | Emergency (ER) | payer MEDICARE, MEDICAID ==
[2020-12-19] MEDS ORDERED: FUROSEMIDE 40 MG/4 ML VIAL IVP STA (10:28)
--- NOTE | 2020-12-19 10:31 | ED Physician Documentation ---
History of Present Illness - Stated complaint Stated Complaint: GLF - Chief complaint Chief Complaint: Trauma Hd/Nk - History obtained from History obtained from: Patient, Family - History of Present Illness Timing: How many days ago (3) - Additonal information Additional information: 70-year-old female presents to the emerge department with 2 problems. Problem #1: she fell out of bed 2 days ago when she sat up to cough and she went to stand up tripped over her foot and fell onto her right side. She has strained her right shoulder she did strike her self in the forehead had some bruising associated with this and a subconjunctival hemorrhage. She did bruise her right knee. She is able to get up and walk on this and has not had difficulty. POroblem #2: She describes that her swelling in general has increased over the past month and she now has significant swelling to her ankles and it is not improving with 80 mg of Lasix per day. She had a similar problem to this last year in October required some IV Lasix. Review of Systems Constitutional: denies: Fever Eyes: denies: Decreased vision Ears: denies: Loss of hearing Nose: denies: Rhinorrhea / runny nose, Congestion Throat: denies: Sore throat Cardiac: reports: Pedal edema. denies: Chest pain / pressure, Palpitations, Calf pain Respiratory: reports: Cough. denies: Dyspnea GI: denies: Abdominal Pain, Nausea, Vomiting : denies: Dysuria, Frequency Skin: denies: Rash Musculoskeletal: reports: Extremity pain. denies: Neck pain, Back pain Neurologic: denies: Generalized weakness, Focal weakness, Numbness PD PAST MEDICAL HISTORY - Past Medical History Past Medical History: Yes Cardiovascular: Congestive heart failure, Hypertension, High cholesterol, Murmur Respiratory: None Endocrine/Autoimmune: Type 2 diabetes GI: None : None HEENT: None Psych: None Musculoskeletal: Osteoarthritis Derm: None - Past Surgical History Past Surgical History: Yes General: Cholecystectomy, Appendectomy Ortho: Knee replacement HEENT: Other - Present Medications Home Medications: Ambulatory Orders Medication Instructions Recorded Confirmed Furosemide [Lasix] 80 mg PO DAILY 09/09/14 12/19/20 Hydrocodone/Acetaminophen 1 tab PO Q6H PRN 09/09/14 12/19/20 [Hydrocodon-Acetaminophn 10-325] Metformin HCl 500 mg PO DAILY 09/09/14 12/19/20 Metoprolol Tartrate 100 mg PO BID 09/09/14 12/19/20 Potassium Chloride [K-Dur] 40 meq PO DAILY 09/09/14 12/19/20 Simvastatin 20 mg PO DAILY 09/09/14 12/19/20 Aspirin [Adult Low Dose Aspirin EC] 81 mg ORAL DAILY 07/11/16 12/19/20 Lactobacillus Acidophilus 2 tab PO DAILY 12/19/20 12/19/20 [Probiotic Acidophilus] Losartan Potassium [Cozaar] 100 mg PO DAILY 12/19/20 12/19/20 Pregabalin [Lyrica] 50 mg PO BID 12/19/20 12/19/20 - Allergies Allergies/Adverse Reactions: Allergies Allergy/AdvReac Type Severity Reaction Status Date / Time nystatin Allergy Severe Edema Verified 12/19/20 09:15 etodolac Allergy Unknown Verified 12/19/20 09:15 lisinopril AdvReac Intermediate Cough Verified 12/19/20 09:15 - Social History Does the pt smoke?: No Smoking Status: Never smoker Does the pt drink ETOH?: No Does the pt have substance abuse?: No - Immunizations Immunizations are current?: Yes - POLST Patient has POLST: No PD ED PE NORMAL - Vitals Vital signs reviewed: Yes (hypertensive ) - General General: Alert and oriented X 3, No acute distress, Well developed/nourished - HEENT HEENT: Atraumatic, PERRL, EOMI - Neck Neck: Supple, no meningeal sign, No bony TTP - Cardiac Cardiac: RRR, No murmur - Respiratory Respiratory: No respiratory distress, Clear bilaterally - Abdomen Abdomen: Normal bowel sounds, Soft, Non tender, Non distended, No organomegaly - Back Back: No CVA TTP, No spinal TTP - Derm Derm: Normal color, Warm and dry, No rash - Extremities Extremities: Other (There is chronic edema to the lower extremity bilaterally symmetrically and this appears mostly around the ankles. 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, No motor deficit, No sensory de ficit, Normal speech Eye Opening: Spontaneous Motor: Obeys Commands Verbal: Oriented GCS Score: 15 - Psych Psych: Normal mood, Normal affect Results - Vitals Vitals: Vital Signs - 24 hr 12/19/20 12/19/20 09:11 11:14 Temperature 36.0 C L 36.7 C Heart Rate 81 79 Respiratory 20 16 Rate Blood Pressure 167/109 H 151/98 H O2 Saturation 98 96 Oxygen O2 Source [] Room air O2 Source Room air - Labs Labs: Laboratory Tests 12/19/20 12/19/20 12/19/20 10:36 10:36 10:36 WBC 7.2 RBC 4.17 L Hgb 11.9 L Hct 37.9 MCV 90.9 MCH 28.5 MCHC 31.4 L RDW 13.2 Plt Count 227 MPV 10.4 Neut # (Auto) 5.1 Lymph # (Auto) 1.3 L [place] # (Auto) 0.5 Eos # (Auto) 0.2 Baso # (Auto) 0.1 Absolute Nucleated RBC 0.00 Nucleated RBC % 0.0 Sodium 138 Potassium 3.7 Chloride 100 L Carbon Dioxide 27 Anion Gap 11.0 BUN 16 Creatinine 1.1 H Estimated GFR (MDRD) 49 L Glucose 123 H Calcium 8.7 Total Bilirubin 0.8 AST 21 ALT 24 Alkaline Phosphatase 67 B-Natriuretic Peptide 210 H Total Protein 6.8 Albumin 3.7 Globulin 3.1 Albumin/Globulin Ratio 1.2 Lipase 28 - Rads (name of study) chest Radiology: Prelim report reviewed (Impression: No acute cardiopulmonary process demonstrated radiographically.), EMP read indepedently, See rad report shoulder Radiology: Prelim report reviewed (Impression: No acute right shoulder fracture or dislocation. Moderate acromioclavicular joint osteoarthritis.), EMP read indepedently, See rad report Procedures - IVC sono (time) 1025 Bedside IVC sono: IVC measures (cm) (2.54), High CVP, Fluid overload PD MEDICAL DECISION MAKING - ED course Complexity details: reviewed old records, reviewed results, re-evaluated patient, considered differential, d/w patient, d/w family ED course: 70-year-old female with a prior history of fluid retention has retained fluid again and she has had a fall out of bed injuring her right shoulder her forehead and her right knee. She has been ambulating on the right side without difficulty denies any significant pain associated with the right knee bruise. She did not have loss of consciousness with the injury to her head she did have some tracking of the blood down into her cheeks. She does have a subconjunctival hemorrhage. She denies any difficulty concentrating or nausea. For this patient's first problem we will x-ray her right shoulder I do not believe a CT of the head is indicated or an x-ray of the right knee. Or the patient second problem with the fluid overload she has failed 80 mg of Lasix daily at controlling her edema and she likely has swelling to the intestine as well. She would benefit from a IV dose of Lasix. We will place an IV line obtain blood work and administer Lasix. The patient has a brisk diuretic response to an IV dose of Lasix. Indicating t hat her kidney still works fine and that she still has excess fluid on board. She may have some intestinal edema and poor absorption of Lasix. I have described this to the patient and indicated to her that I would like her to increase her dose of Lasix to 120 mg daily and if she does not have adequate output to talk to GEOFFREY Pak about torsemide. Departure - Departure Disposition: 01 Home, Self Care Clinical Impression: Contusion of shoulder Qualifiers: Encounter type: initial encounter Laterality: right Qualified Code(s): S40.011A - Contusion of right shoulder, initial encounter Volume overload Qualifiers: Hypervolemia type: unspecified Qualified Code(s): E87.70 - Fluid overload, unspecified Condition: Stable Instructions: ED Contusion Shoulder, ED Edema Legs Bilateral Follow-Up: Laxmi Pak PA-C [Primary Care Provider] - Comments: Today it appears your kidneys are working fine and the dose of intravenous Lasix seems to have helped quite a bit. This may help your regular oral Lasix be absorbed more easily. The recommendation is to increase your dose to 1-1/2 pills and if you do not have an adequate response to this talk to GEOFFREY Pak about torsemide.
--- NOTE | 2020-12-19 10:44 | XRAY Report ---
PROCEDURE: Chest 1 View X-Ray INDICATIONS: Chest pain TECHNIQUE: One view of the chest was acquired. COMPARISON: 10/24/2019 FINDINGS: Surgical changes and devices: None. Lungs and pleura: No pleural effusions or pneumothorax. Lungs are clear. Mediastinum: Mediastinal contours appear normal. Heart size is normal. Bones and chest wall: No suspicious bony lesions. Overlying soft tissues appear unremarkable. IMPRESSION: No acute cardiopulmonary process demonstrated radiographically. Reviewed by: Kumar Rodriguez MD on 12/19/2020 10:43 AM PDT Approved by: Kumar Rodriguez MD on 12/19/2020 10:43 AM PDT Station ID: [id number]
[2020-12-19 10:45] LABS: BASOPHILS # (AUTO) 0.1 10^3/uL (0.0-0.1); EOSINOPHILS # (AUTO) 0.2 10^3/uL (0.0-0.7); EOSINOPHILS % (AUTO) 2.8 %; HCT - HEMATOCRIT 37.9 % (37.0-47.0); HGB - HEMOGLOBIN 11.9 g/dL (12.0-16.0); LYMPHOCYTES # (AUTO) 1.3 10^3/uL (1.5-3.5); LYMPHOCYTES % (AUTO) 18.2 %; MEAN CORPUSCULAR HEMOGLOBIN 28.5 pg (27.0-31.0); MEAN CORPUSCULAR HGB CONC 31.4 g/dL (32.0-36.0); MEAN CORPUSCULAR VOLUME 90.9 fL (81.0-99.0); MEAN PLATELET VOLUME 10.4 fL (7.9-10.8); MONOCYTES # (AUTO) 0.5 10^3/uL (0.0-1.0); MONOCYTES % (AUTO) 7.2 %; NEUTROPHILS # (AUTO) 5.1 10^3/uL (1.5-6.6); NEUTROPHILS % (AUTO) 70.5 %; PLT - PLATELET COUNT 227 10^3/uL (130-450); RED BLOOD COUNT 4.17 10^6/uL (4.20-5.40); RED CELL DISTRIBUTION WIDTH 13.2 % (12.0-15.0); WHITE BLOOD COUNT 7.2 x10^3/uL (4.8-10.8)
[2020-12-19 10:57] LABS: ALBUMIN 3.7 g/dL (3.2-5.5); ALBUMIN/GLOBULIN RATIO 1.2 (1.0-2.2); BILIRUBIN,TOTAL 0.8 mg/dL (0.2-1.0); CALCIUM 8.7 mg/dL (8.5-10.3); CREATININE 1.1 mg/dL (0.4-1.0); POTASSIUM 3.7 mmol/L (3.5-5.0); TOTAL PROTEIN 6.8 g/dL (6.7-8.2)
--- NOTE | 2020-12-19 12:32 | XRAY Report ---
PROCEDURE: Shoulder 3 View RT INDICATIONS: fall shoulder pain TECHNIQUE: 3 views of the shoulder were acquired. COMPARISON: None. FINDINGS: Bones: No fractures or dislocations. Moderate acromioclavicular joint osteoarthritic changes are se en. No suspicious bony lesions. Visualized ribs appear intact. Soft tissues: No suspicious soft tissue calcifications. IMPRESSION: No acute right shoulder fracture or dislocation. Moderate acromioclavicular joint osteoa rthritis. Reviewed by: Chele Hamilton MD on 12/19/2020 12:30 PM PDT Approved by: Chele Hamilton MD on 12/19/2020 12:30 PM PDT Station ID: [id number]
[2020-12-19 13:01] VITALS: BP 137/83
== END 2020-12-19 13:10 | disposition home or self-care (01) ==
LOC: ED 09:00
DX: S40.011A Contusion of right shoulder, initial encounter (principal); W06.XXXA Fall from bed, initial encounter; Y93.89 Activity, other specified; Y92.003 Bedroom of unspecified non-institutional (private) residence as the place of occurrence of the external cause; R60.9 Edema, unspecified
CPT/HCPCS: 36415; 80053; 83690; 83880; 85025; 96374; 99284

== ENCOUNTER 2021-07-20 10:00 | Outpatient (CLI) | payer MEDICARE, MEDICAID ==
[2021-07-20 12:47] LABS: ALBUMIN 4.2 g/dL (3.2-5.5); ALBUMIN/GLOBULIN RATIO 1.2 (1.0-2.2); ALKALINE PHOSPHATASE 69 IU/L (42-121); ALT ALANINE AMINOTRANSFERASE 12 IU/L (10-60); AST ASPARTATE AMINOTRANSFERASE 15 IU/L (10-42); BILIRUBIN,TOTAL 0.7 mg/dL (0.2-1.0); BUN - BLOOD UREA NITROGEN 20 mg/dL (6-20); CALCIUM 9.5 mg/dL (8.5-10.3); CARBON DIOXIDE - CO2 27 mmol/L (21-32); CHLORIDE 101 mmol/L (101-111); CHOL/HDL RATIO 2.5 (<4.4); CHOLESTEROL 148 mg/dL; CREATININE 1.1 mg/dL (0.4-1.0); GFR - MDRD 49 (>89); GLUCOSE 126 mg/dL (70-100); HDL CHOLESTEROL 59 mg/dL; LDL CHOLESTEROL,CALCULATED 68 mg/dL; LDL/HDL RATIO 1.2 (<4.4); POTASSIUM 4.2 mmol/L (3.5-5.0); SODIUM 139 mmol/L (135-145); TOTAL PROTEIN 7.8 g/dL (6.7-8.2); TRIGLYCERIDES 103 mg/dL; VLDL CHOLESTEROL 21 mg/dL
[2021-07-20 12:57] LABS: ESTIMATED AVERAGE GLUCOSE 128 mg/dL (70-100); HEMOGLOBIN A1c% 6.1 % (4.27-6.07)
[2021-07-20 13:06] LABS: THYROID STIMULATING HORMONE 3.1 uIU/mL (0.34-5.60)
== END 2021-07-20 10:01 | disposition home or self-care (01) ==
LOC: LAB.N 10:00
PROVIDERS: ATTEND Physician Assistant Medical
DX: E11.9 Type 2 diabetes mellitus without complications (principal)
CPT/HCPCS: 36415; 80053; 80061; 83036; 83721; 84443

== ENCOUNTER 2021-08-15 06:40 | Outpatient (CLI) | payer MEDICARE, MEDICAID ==
--- NOTE | 2021-08-15 17:47 | MRI Report ---
PROCEDURE: Lumbar Spine W/O INDICATIONS: LOW BACK PAIN TECHNIQUE: Noncontrast sagittal T1 spin echo and T2 fast echo, sagittal STIR, axial T1 and T2 fast spin echo thr ough the lumbar spine. In cases with scoliosis, additional coronal T2 fast spin echo may be performe d. COMPARISON: Correlation is made with prior lumbar plain films, 06/21/2020 FINDINGS: Image quality: Excellent. Alignment and Curvature: There is normal bony alignment. Bone Marrow: Marrow is of normal overall signal. Scattered foci of T1-weighted hyperintensity and T 2-weighted hyperintensity are seen, without increased STIR signal. These foci are attributed to benig n vertebral body hemangiomas. No acute vertebral body compression fractures. Spinal Cord: Conus medullaris terminates at the L1 level. Visualized cord demonstrates normal signa l and size. Paraspinous Soft Tissues: No paravertebral masses. T12-L1: Normal in appearance. L1-L2: The disc height and disc signal are well preserved. Mild disc bulge is seen. Mild facet hypertrophy is seen. There is mild right-sided and moderate left-sided neuroforaminal narrowing see n. No significant central canal narrowing is seen. L2-L3: The disc height and disc signal are relatively well-preserved. Mild disc bulge is seen. Moderate facet hypertrophy is seen. There is moderate right-sided and mild to moderate left-sided ne uroforaminal narrowing seen. No significant central canal narrowing can be seen at this level. L3-L4: The disc height is well-preserved. There is loss of disc signal seen. Moderate disc bulge i s seen at this level. Moderate to prominent facet hypertrophy is seen at this level. Associated hype rtrophy of the ligamentum flavum can be seen. Moderate to severe bilateral neuroforaminal narrowing can be seen, right worse than left. Compression is seen upon the exiting nerve roots. Moderate cent ral canal narrowing is seen. L4-L5: The disc height is well-preserved. There is loss of disc signal seen. Moderate disc bulge i s seen at this level. Moderate to prominent facet hypertrophy can be seen, left worse than right. Th ere is moderate to severe left-sided and at least moderate right-sided neuroforaminal narrowing. Comp ression is seen upon the exiting nerve roots. Mild central canal narrowing is seen. L5-S1: The disc height is well-preserved. There is loss of disc signal seen. Mild disc bulge i s seen. Mild facet hypertrophy is seen. There is minimal right-sided and mild left-sided neurofor aminal narrowing seen. No significant central canal narrowing is seen. IMPRESSION: Multiple levels of lumbar spine degenerative change are seen, which are overall most pro minent at L3-L4 and L4-5. Reviewed by: Gianni Bhardwaj MD on 08/15/2021 4:46 PM AKDT Approved by: Gianni Bhardwaj MD on 08/15/2021 4:46 PM AKDT Station ID: [id number]
== END 2021-08-15 06:41 | disposition home or self-care (01) ==
LOC: DI 06:40
PROVIDERS: ATTEND Physician Assistant Medical
DX: M47.816 Spondylosis without myelopathy or radiculopathy, lumbar region (principal); M51.36 Other intervertebral disc degeneration, lumbar region; M47.817 Spondylosis without myelopathy or radiculopathy, lumbosacral region; M51.37 Other intervertebral disc degeneration, lumbosacral region; M48.061 Spinal stenosis, lumbar region without neurogenic claudication

== ENCOUNTER 2021-08-30 08:00 | Outpatient (CLI) | payer MEDICARE, MEDICAID | END 2021-08-30 08:01 | disposition home or self-care (01) | LOC: LAB.WCP 08:00 | PROVIDERS: ATTEND Physician Assistant Medical | DX: I87.319 Chronic venous hypertension (idiopathic) with ulcer of unspecified lower extremity (principal) | CPT/HCPCS: 87070; 87181; 87205 ==

== ENCOUNTER 2022-02-21 09:43 | Outpatient (CLI) | payer MEDICARE, MEDICAID ==
[2022-02-21 12:25] LABS: ALBUMIN 3.8 g/dL (3.2-5.5); ALBUMIN/GLOBULIN RATIO 1.1 (1.0-2.2); ALKALINE PHOSPHATASE 68 IU/L (42-121); ALT ALANINE AMINOTRANSFERASE 11 IU/L (10-60); AST ASPARTATE AMINOTRANSFERASE 15 IU/L (10-42); BUN - BLOOD UREA NITROGEN 20 mg/dL (6-20); CALCIUM 9.1 mg/dL (8.5-10.3); CARBON DIOXIDE - CO2 28 mmol/L (21-32); CHLORIDE 104 mmol/L (101-111); CHOL/HDL RATIO 2.4 (<4.4); CHOLESTEROL 143 mg/dL; GFR - MDRD 54 (>89); GLUCOSE 110 mg/dL (70-100); HDL CHOLESTEROL 59 mg/dL; LDL CHOLESTEROL,CALCULATED 69 mg/dL; LDL/HDL RATIO 1.2 (<4.4); POTASSIUM 3.6 mmol/L (3.5-5.0); SODIUM 142 mmol/L (135-145); TOTAL PROTEIN 7.2 g/dL (6.7-8.2); TRIGLYCERIDES 76 mg/dL; VLDL CHOLESTEROL 15 mg/dL
[2022-02-21 12:54] LABS: ESTIMATED AVERAGE GLUCOSE 128 mg/dL (70-100); HEMOGLOBIN A1c% 6.1 % (4.27-6.07)
== END 2022-02-21 09:44 | disposition home or self-care (01) ==
LOC: LAB.N 09:43
PROVIDERS: ATTEND Physician Assistant Medical
DX: E11.9 Type 2 diabetes mellitus without complications (principal)
CPT/HCPCS: 36415; 80053; 80061; 83036; 83721

== ENCOUNTER 2022-02-28 11:27 | Outpatient (CLI) | payer MEDICARE, MEDICAID ==
--- NOTE | 2022-03-01 12:53 | Mammography Report ---
BILATERAL DIGITAL SCREENING MAMMOGRAM 3D/2D: 02/28/2022 CLINICAL: Family history of breast cancer. Routine screening. Comparison is made to exams dated: 06/28/2020 mammogram, 02/09/2019 mammogram, 03/15/2017 mammogram, mammogram, 10/18/2014 mammogram, and 10/23/2013 mammogram - . There are scattered areas of fibroglandular density in both breasts (category b / 25%-50% glandular t issue). No significant masses, calcifications, or other findings are seen in either breast. There has been no significant interval change. IMPRESSION: NEGATIVE There is no mammographic evidence of malignancy. A 1 year screening mammogram is recommended. Based on the Tyrer Cuzick model (a risk assessment model) the patients lifetime risk is 8.0% and her 10 year risk is 6.5%. According to the ACR, ACS, and NCCN guidelines, an annual breast MRI exam ev g with mammogram is recommended if the patients lifetime risk is 20% or greater. This exam was interpreted at Station ID: [id number]. NOTE: For mammograms, a report in lay terms will be sent to the patient. Approximately 15% of breast malignancies will not be visualized mammographically. In the management of a palpable breast mass, a negative mammogram must not discourage biopsy of a clinically suspicious lesion. Electronically Signed By: Kumar Rodriguez M.D., jr/magalie:02/28/2022 15:24:51 ACR BI-RADS Category 1: Negative 3341F PARENCHYMAL PATTERN: (A) - The breast(s) demonstrate(s) scattered fibroglandular densities. BI-RADS CATEGORY: (1) - 1 RECOMMENDATION: (ANNUAL) - Recommend routine annual screening mammography. [id number] 1 year screening LATERALITY: (B)
== END 2022-02-28 11:28 | disposition home or self-care (01) ==
LOC: DI.N 11:27
DX: Z12.31 Encounter for screening mammogram for malignant neoplasm of breast (principal); Z80.3 Family history of malignant neoplasm of breast

== ENCOUNTER 2022-07-26 07:29 | Outpatient (CLI) | payer MEDICARE, MEDICAID ==
[2022-07-26 11:47] LABS: BASOPHILS # (AUTO) 0.1 10^3/uL (0.0-0.1); BASOPHILS % (AUTO) 0.7 %; EOSINOPHILS # (AUTO) 0.3 10^3/uL (0.0-0.7); EOSINOPHILS % (AUTO) 2.7 %; HCT - HEMATOCRIT 46.5 % (37.0-47.0); HGB - HEMOGLOBIN 14.4 g/dL (12.0-16.0); LYMPHOCYTES # (AUTO) 2.8 10^3/uL (1.5-3.5); LYMPHOCYTES % (AUTO) 28.3 %; MEAN CORPUSCULAR HEMOGLOBIN 28.8 pg (27.0-31.0); MEAN PLATELET VOLUME 11.1 fL (7.9-10.8); MONOCYTES # (AUTO) 0.7 10^3/uL (0.0-1.0); MONOCYTES % (AUTO) 7.6 %; NEUTROPHILS # (AUTO) 5.9 10^3/uL (1.5-6.6); NEUTROPHILS % (AUTO) 60.4 %; PLT - PLATELET COUNT 265 10^3/uL (130-450); RED CELL DISTRIBUTION WIDTH 13.3 % (12.0-15.0); WHITE BLOOD COUNT 9.7 x10^3/uL (4.8-10.8)
[2022-07-26 12:03] LABS: ALBUMIN 3.8 g/dL (3.2-5.5); ALBUMIN/GLOBULIN RATIO 1.2 (1.0-2.2); ALKALINE PHOSPHATASE 67 IU/L (42-121); ALT ALANINE AMINOTRANSFERASE 10 IU/L (10-60); AST ASPARTATE AMINOTRANSFERASE 13 IU/L (10-42); BILIRUBIN,TOTAL 0.9 mg/dL (0.2-1.0); BUN - BLOOD UREA NITROGEN 22 mg/dL (6-20); CALCIUM 8.9 mg/dL (8.5-10.3); CARBON DIOXIDE - CO2 25 mmol/L (21-32); CHLORIDE 105 mmol/L (101-111); CHOL/HDL RATIO 2.7 (<4.4); CHOLESTEROL 148 mg/dL; CREATININE 1.1 mg/dL (0.4-1.0); GFR - MDRD 49 (>89); GLUCOSE 117 mg/dL (70-100); HDL CHOLESTEROL 54 mg/dL; LDL CHOLESTEROL,CALCULATED 78 mg/dL; LDL/HDL RATIO 1.4 (<4.4); POTASSIUM 3.8 mmol/L (3.5-5.0); SODIUM 139 mmol/L (135-145); TOTAL PROTEIN 7.1 g/dL (6.7-8.2); TRIGLYCERIDES 82 mg/dL; VLDL CHOLESTEROL 16 mg/dL
[2022-07-26 12:18] LABS: ESTIMATED AVERAGE GLUCOSE 134 mg/dL (70-100); HEMOGLOBIN A1c% 6.3 % (4.27-6.07)
== END 2022-07-26 07:30 | disposition home or self-care (01) ==
LOC: LAB.N 07:29
PROVIDERS: ATTEND Physician Assistant Medical
DX: E11.9 Type 2 diabetes mellitus without complications (principal)
CPT/HCPCS: 36415; 80053; 80061; 82043; 82570; 83036; 83721; 85025

== ENCOUNTER 2022-07-30 08:00 | Outpatient (CLI) | payer MEDICARE, MEDICAID ==
[2022-07-30 18:33] LABS: CREATININE,URINE 88.3 mg/dL; MICROALBUM/CREATININE RATIO,UR 7.9 ug/mg (<30.0); MICROALBUMIN,URINE 0.7 mg/dL (0-300.0)
== END 2022-07-30 23:59 | disposition home or self-care (01) ==
LOC: LAB.R 08:00
PROVIDERS: ATTEND Physician Assistant Medical
DX: E11.9 Type 2 diabetes mellitus without complications (principal)
CPT/HCPCS: 82043; 82570

== ENCOUNTER 2023-01-08 09:54 | Outpatient (CLI) | payer MEDICARE, MEDICAID ==
[2023-01-08 10:44] LABS: CALCIUM 9.5 mg/dL (8.5-10.3); CREATININE 1.1 mg/dL (0.6-1.3)
[2023-01-08 11:41] LABS: ESTIMATED AVERAGE GLUCOSE 131 mg/dL (70-100); HEMOGLOBIN A1c% 6.2 % (4.27-6.07)
== END 2023-01-08 09:55 | disposition home or self-care (01) ==
LOC: LAB 09:54
PROVIDERS: ATTEND Physician Assistant Medical
DX: E11.9 Type 2 diabetes mellitus without complications (principal)
CPT/HCPCS: 36415; 80048; 83036

== ENCOUNTER 2023-03-31 17:56 | Emergency (ER) | payer MEDICARE, MEDICAID ==
[2023-03-31] MEDS ORDERED: HYDROmorphone 1 MG/ML CARPUJECT IVP STA (18:35)
--- NOTE | 2023-03-31 18:46 | ED Physician Documentation ---
History of Present Illness - Stated complaint Stated Complaint: BACK PX - Chief complaint Chief Complaint: General - History obtained from History obtained from: Patient, Family - History of Present Illness Timing: How many days ago (4) Pain level max: 7 Pain level now: 7 - Additonal information Additional information: Patient is a 72-year-old female who presents to the emergency department with left flank and left lower quadrant abdominal pain. This started about 4 days ago. Has been ongoing since that time. Nothing seems to really make it better, it is worse with sitting up. No diarrhea. No constipation. No blood in the stool. No fevers. No chills. Has not had similar symptoms previously. No urinary symptoms. No recent surgery. No recent travel. No recent antibiotics. Review of Systems Constitutional: denies: Fever, Chills Respiratory: denies: Cough GI: denies: Nausea, Vomiting, Diarrhea : denies: Dysuria, Frequency, Hesitancy, Unable to Void Skin: denies: Rash Musculoskeletal: denies: Neck pain, Back pain Neurologic: denies: Headache PD PAST MEDICAL HISTORY - Past Medical History Past Medical History: Yes Cardiovascular: Congestive heart failure, Hypertension, High cholesterol, Atrial fibrillation, Murmur Respiratory: None Endocrine/Autoimmune: Type 2 diabetes GI: None : None HEENT: None Psych: None Musculoskeletal: Osteoarthritis Derm: None - Past Surgical History Past Surgical History: Yes General: Cholecystectomy, Appendectomy Ortho: Knee replacement HEENT: Other - Present Medications Home Medications: Ambulatory Orders Medication Instructions Recorded Confirmed Metformin HCl 500 mg PO DAILY 09/09/14 03/31/23 Aspirin [Adult Low Dose Aspirin EC] 81 mg ORAL DAILY 07/11/16 03/31/23 Lactobacillus Acidophilus 2 tab PO DAILY 12/19/20 03/31/23 [Probiotic Acidophilus] Pregabalin [Lyrica] 50 mg PO BID 12/19/20 03/31/23 Apixaban [Eliquis] 5 mg PO BID 03/07/22 03/31/23 Atorvastatin [Lipitor] 20 mg PO DAILY 03/07/22 03/31/23 Bumetanide 2 mg PO DAILY 03/07/22 03/31/23 Empagliflozin [Jardiance] 10 mg PO DAILY 03/07/22 03/31/23 Metoprolol Succinate 100 mg PO BID 03/07/22 03/31/23 Sacubitril/Valsartan [Entresto 49 1 tab PO BID 03/07/22 03/31/23 mg-51 mg Tablet] Spironolactone [Aldactone] 25 mg PO DAILY 03/07/22 03/31/23 Cyclobenzaprine HCl 1 tab PO TID PRN 03/31/23 03/31/23 Oxycodone HCl/Acetaminophen 1 - 2 each PO Q6H PRN #14 tablet 03/31/23 [Percocet 5-325 mg Tablet] MDD 6 tabs Potassium Chloride [Klor-Con M20] 20 meq PO DAILY 03/31/23 03/31/23 - Allergies Allergies/Adverse Reactions: Allergies Allergy/AdvReac Type Severity Reaction Status Date / Time nystatin Allergy Severe Edema Verified 03/31/23 18:07 etodolac Allergy Unknown Verified 03/31/23 18:07 lisinopril AdvReac Intermediate Cough Verified 03/31/23 18:07 - Social History Does the pt smoke?: No Smoking Status: Never smoker Does the pt drink ETOH?: No Does the pt have substance abuse?: No - Immunizations Immunizations are current?: Yes - POLST Patient has POLST: No PD ED PE NORMAL - Vitals Vital signs reviewed: Yes - General General: Alert and oriented X 3, No acute distress - HEENT HEENT: Moist mucous membranes - Neck Neck: Supple, no meningeal sign - Cardiac Cardiac: RRR, Strong equal pulses - Respiratory Respiratory: No respiratory distress, Clear bilaterally - Abdomen Abdomen: Soft, Non distended, Other (Mild tender to palpation left lower quadrant. No peritoneal signs) - Back Back: No CVA TTP, No spinal TTP - Derm Derm: Warm and dry - Extremities Extremities: No edema, No calf tenderness / cord - Neuro Neuro: Alert and oriented X 3 - Psych Psych: Normal mood, Normal affect Results - Vitals Vitals: Vital Signs - 24 hr 03/31/23 18:02 Temperature 36.5 C Heart Rate 105 H Respiratory 22 Rate Blood Pressure 152/83 H O2 Saturation 99 Oxygen O2 Source [] Room air O2 Source Room air - Labs Labs: Laboratory Tests 03/31/23 03/31/23 03/31/23 18:44 18:44 21:08 WBC 7.4 RBC 5.15 Hgb 14.8 Hct 47.6 H MCV 92.4 MCH 28.7 MCHC 31.1 L RDW 13.3 Plt Count 211 MPV 10.3 Neut # (Auto) 5.7 Lymph # (Auto) 1.0 L [place] # (Auto) 0.5 Eos # (Auto) 0.0 Baso # (Auto) 0.1 Absolute Nucleated RBC 0.00 Nucleated RBC % 0.0 Sodium 138 Potassium 4.1 Chloride 103 Carbon Dioxide 27 Anion Gap 8.0 BUN 12 Creatinine 0.9 Estimated GFR (MDRD) 61 L Glucose 121 H Calcium 9.7 Total Bilirubin 0.8 AST 12 ALT 9 L Alkaline Phosphatase 60 Total Protein 7.0 Albumin 4.1 Globulin 2.9 Albumin/Globulin Ratio 1.4 Lipase < 10 L Urine Color YELLOW Urine Clarity CLEAR Urine pH 6.0 Ur Specific [place] 1.010 Urine Protein TRACE Urine Glucose (UA) 500 H Urine Ketones NEGATIVE Urine Occult Blood MODERATE H Urine Nitrite NEGATIVE Urine Bilirubin NEGATIVE Urine Urobilinogen 0.2 (NORMAL) Ur Leukocyte Esterase NEGATIVE Urine RBC 11-25 H Urine WBC 0-3 Ur Squamous Epith Cells FEW Squamous Urine Bacteria Rare Ur Microscopic Review INDICATED Urine Culture Comments NOT INDICATED - Rads (name of study) CT abdomen pelvis Relevant Findings:: Final report received, See rad report PD Medical Decision Making - ED course Complexity details: reviewed results, re-evaluated patient, considered differential, d/w patient, d/w family ED course: 72-year-old female with left flank and left lower quadrant pain. No acute findings on CT scan. Does have small hematuria. Symptoms are consistent with ureteral stone, possible that the stone is too small to be seen on CT scan or was volume averaged out in the slices. Pain well-controlled here. Will place on pain medication for home. Will have her follow-up with her PCP for further care. No midline back pain or tenderness. No numbness or tingling. No loss of bowel or bladder control. No evidence of cauda equina, epidural abscess. No evidence of aortic dissection. No evidence of pyelonephritis. No evidence of sepsis. Patient counseled regarding signs and symptoms for which I believe and urgent re-evaluation would be necessary. Patient with good understanding of and agreement to plan and is comfortable going home at this time This document was made in part using voice recognition software. While efforts are made to proofread this document, sound alike and grammatical errors may occur. Departure - Departure Disposition: 01 Home, Self Care Clinical Impression: Flank pain Abdominal pain Qualifiers: Abdominal location: left lower quadrant Qualified Code(s): R10.32 - Left lower quadrant pain Condition: Good Instructions: ED Abdominal Pain Female Non-Specific Abdominal Pain, ED Stone Renal W Colic Follow-Up: Laxmi Pak PA-C [Primary Care Provider] - Within 1 week Prescriptions: Oxycodone HCl/Acetaminophen [Percocet 5-325 mg Tablet] 1 - 2 each PO Q6H PRN #14 tablet MDD 6 tabs PRN Reason: pain Comments: Your prescription was sent to [facility] in [place]. Please follow-up with your doctor for further care. Please return if you worsen. Your laboratory testing and CT scan do not show a reason for your pain, based on your symptoms and the blood in the urine, I suspect you have a small kidney stone that is just unable to be seen on CT scan. Please make sure you are drinking plenty of water. Please return for worsening pain, fevers, vomiting or other new or worrisome symptoms. I am prescribing a short course of narcotic pain medication for you. These are potentially dangerous and addictive medications that should be used carefully. These medications may constipate you. Take an [id number] stool softener (docusate) twice daily with plenty of water while taking these medications. If you go 24 hours without a bowel movement, take [id number] miralax, per package instructions. Do not drink or drive while taking these medications. If you received narcotic or sedating medications while in the emergency department, do not drive for 24 hours. Store this medication in a safe, secure place and out of reach of children. It is a violation of federal law to give or sell this medication to another person or to use in a manner other than prescribed. The ED will not refill narcotic prescriptions, including prescriptions lost or stolen. To dispose of unwanted medications: 1. The [facility] at [address] in [place] has a medication drop box. They accept prescription medications (in pill form) Saturday through Saturday 9:00 a.m. to 5:00 p.m. 2. The [facility] accepts prescription medications (in pill form only) for disposal year round. Call for more information. 3. Contact the [facility] for the next [facility] sponsored prescription drug collection event. , [phone], or [phone]; Forms: PCP List
[2023-03-31 18:50] LABS: BASOPHILS # (AUTO) 0.1 10^3/uL (0.0-0.1); BASOPHILS % (AUTO) 0.8 %; EOSINOPHILS % (AUTO) 0.5 %; HCT - HEMATOCRIT 47.6 % (37.0-47.0); HGB - HEMOGLOBIN 14.8 g/dL (12.0-16.0); LYMPHOCYTES % (AUTO) 13.9 %; MEAN CORPUSCULAR HEMOGLOBIN 28.7 pg (27.0-31.0); MEAN CORPUSCULAR HGB CONC 31.1 g/dL (32.0-36.0); MEAN CORPUSCULAR VOLUME 92.4 fL (81.0-99.0); MEAN PLATELET VOLUME 10.3 fL (7.9-10.8); MONOCYTES # (AUTO) 0.5 10^3/uL (0.0-1.0); NEUTROPHILS # (AUTO) 5.7 10^3/uL (1.5-6.6); NEUTROPHILS % (AUTO) 77.4 %; PLT - PLATELET COUNT 211 10^3/uL (130-450); RED BLOOD COUNT 5.15 10^6/uL (4.20-5.40); RED CELL DISTRIBUTION WIDTH 13.3 % (12.0-15.0); WHITE BLOOD COUNT 7.4 x10^3/uL (4.8-10.8)
[2023-03-31 19:06] LABS: ALBUMIN 4.1 g/dL (3.2-5.5); ALBUMIN/GLOBULIN RATIO 1.4 (1.0-2.2); ALKALINE PHOSPHATASE 60 IU/L (42-121); ALT ALANINE AMINOTRANSFERASE 9 IU/L (10-60); AST ASPARTATE AMINOTRANSFERASE 12 IU/L (10-42); BILIRUBIN,TOTAL 0.8 mg/dL (0.2-1.0); BUN - BLOOD UREA NITROGEN 12 mg/dL (6-20); CALCIUM 9.7 mg/dL (8.5-10.3); CARBON DIOXIDE - CO2 27 mmol/L (21-32); CHLORIDE 103 mmol/L (101-111); CREATININE 0.9 mg/dL (0.6-1.3); GFR - MDRD 61 (>89); GLUCOSE 121 mg/dL (74-104); POTASSIUM 4.1 mmol/L (3.5-4.5); SODIUM 138 mmol/L (135-145)
[2023-03-31 19:11] LABS: LIPASE < 10 U/L (11-82)
[2023-03-31] MEDS ORDERED: iohexoL-300 100 ML VIAL IVP ONE (20:56)
--- NOTE | 2023-03-31 21:10 | CT Report ---
PROCEDURE: ABDOMEN/PELVIS W INDICATIONS: LLQ Abdominal pain CONTRAST: 100 OMNI 300 TECHNIQUE: After the administration of intravenous contrast, 5 mm thick sections acquired from the diaphragms to the symphysis. 5 mm thick coronal and sagittal reformats were acquired. For radiation dose reducti on, the following was used: automated exposure control, adjustment of mA and/or kV according to meek ent size. COMPARISON: None. FINDINGS: Image quality: Good. Lung bases and heart: No pleural effusion. Liver: No focal lesion. Gallbladder and biliary tree: Surgically absent. No biliary dilation, accounting for post-cholecystec roxy state. Spleen: No splenomegaly. Pancreas: No pancreatic ductal dilation. Adrenals: No adrenal nodule. Kidneys and ureters: No hydronephrosis. No renal cystic lesion which requires follow up. No solid mas s. Bowel and peritoneum: No bowel distension. No pathologic free fluid. No significant diverticulosis. T he appendix is not seen. Lymph nodes: No central or retroperitoneal adenopathy. Vessels: No infrarenal aortic aneurysm. PELVIS Reproductive organs: Anteverted uterus with calcified fibroids. No free fluid. Bladder: No stone. Pelvic lymph nodes: No pelvic adenopathy by size criteria. Bones: No aggressive osseous abnormality. Other: No significant ventral or inguinal hernia. IMPRESSION: No acute abnormality identified. No free fluid. Reviewed by: Danny Serrano MD on 03/31/2023 9:09 PM [facility] Approved by: Danny Serrano MD on 03/31/2023 9:09 PM PST Station ID: [id number]
[2023-03-31 21:18] LABS: BILIRUBIN,URINE NEGATIVE (NEGATIVE); GLUCOSE, URINE (UA) 500 mg/dL (NEGATIVE); KETONES,URINE (UA) NEGATIVE (NEGATIVE); LEUKOCYTE ESTERASE, URINE NEGATIVE (NEGATIVE); NITRITE,URINE NEGATIVE (NEGATIVE); OCCULT BLOOD,URINE MODERATE (NEGATIVE); PROTEIN,URINE TRACE mg/dL (NEGATIVE); UROBILINOGEN,URINE 0.2 (NORMAL) E.U./dL (NORMAL)
[2023-03-31 21:25] LABS: CLARITY,URINE CLEAR (CLEAR)
[2023-03-31 21:30] LABS: BACTERIA,URINE Rare /HPF (None Seen); SQUAMOUS EPITHELIAL CELL,UR FEW Squamous (<= Few); WBC,URINE 0-3 /HPF (0-5)
[2023-03-31] MEDS ORDERED: oxyCODONE 5 MG TABLET PO STA (21:34)
[2023-03-31 22:16] VITALS: BP 171/93; O2SAT 88
== END 2023-03-31 22:13 | disposition home or self-care (01) ==
LOC: ED 17:56
DX: R10.32 Left lower quadrant pain (principal); I11.0 Hypertensive heart disease with heart failure; I50.9 Heart failure, unspecified; E78.00 Pure hypercholesterolemia, unspecified; I48.91 Unspecified atrial fibrillation; E11.9 Type 2 diabetes mellitus without complications; Z79.84 Long term (current) use of oral hypoglycemic drugs; Z79.899 Other long term (current) drug therapy; Z79.82 Long term (current) use of aspirin; Z79.01 Long term (current) use of anticoagulants
CPT/HCPCS: 36415; 74177; 80053; 81001; 83690; 85025; 96374; 99283; 99284; A9270; J1170; Q9967; 81003; 87086

== ENCOUNTER 2023-04-02 13:41 | Outpatient (CLI) | payer MEDICARE, MEDICAID ==
[2023-04-02 13:58] LABS: BASOPHILS # (AUTO) 0.1 10^3/uL (0.0-0.1); BASOPHILS % (AUTO) 0.7 %; EOSINOPHILS # (AUTO) 0.2 10^3/uL (0.0-0.7); EOSINOPHILS % (AUTO) 1.9 %; HGB - HEMOGLOBIN 14.8 g/dL (12.0-16.0); LYMPHOCYTES # (AUTO) 1.9 10^3/uL (1.5-3.5); LYMPHOCYTES % (AUTO) 21.2 %; MEAN CORPUSCULAR HEMOGLOBIN 28.6 pg (27.0-31.0); MEAN CORPUSCULAR HGB CONC 30.8 g/dL (32.0-36.0); MEAN CORPUSCULAR VOLUME 92.8 fL (81.0-99.0); MEAN PLATELET VOLUME 10.7 fL (7.9-10.8); MONOCYTES # (AUTO) 0.6 10^3/uL (0.0-1.0); NEUTROPHILS # (AUTO) 6.3 10^3/uL (1.5-6.6); NEUTROPHILS % (AUTO) 68.9 %; PLT - PLATELET COUNT 253 10^3/uL (130-450); RED BLOOD COUNT 5.17 10^6/uL (4.20-5.40); RED CELL DISTRIBUTION WIDTH 13.5 % (12.0-15.0); WHITE BLOOD COUNT 9.1 x10^3/uL (4.8-10.8)
[2023-04-02 14:06] LABS: BILIRUBIN,URINE NEGATIVE (NEGATIVE); GLUCOSE, URINE (UA) >=1000 mg/dL (NEGATIVE); KETONES,URINE (UA) NEGATIVE (NEGATIVE); LEUKOCYTE ESTERASE, URINE NEGATIVE (NEGATIVE); NITRITE,URINE NEGATIVE (NEGATIVE); OCCULT BLOOD,URINE SMALL (NEGATIVE); PROTEIN,URINE TRACE mg/dL (NEGATIVE); UROBILINOGEN,URINE 0.2 (NORMAL) E.U./dL (NORMAL)
[2023-04-02 14:14] LABS: BACTERIA,URINE Moderate /HPF (None Seen); CLARITY,URINE CLEAR (CLEAR); RBC,URINE 0-5 /HPF (0-5); SQUAMOUS EPITHELIAL CELL,UR FEW Squamous (<= Few); WBC,URINE 0-3 /HPF (0-5)
[2023-04-02 14:16] LABS: ALBUMIN 4.4 g/dL (3.2-5.5); ALBUMIN/GLOBULIN RATIO 1.5 (1.0-2.2); BILIRUBIN,TOTAL 0.7 mg/dL (0.2-1.0); CALCIUM 9.6 mg/dL (8.5-10.3); CREATININE 1.2 mg/dL (0.6-1.3); POTASSIUM 4.2 mmol/L (3.5-4.5); TOTAL PROTEIN 7.4 g/dL (6.4-8.9)
[2023-04-02 14:35] LABS: FERRITIN 64.4 ng/mL (11.0-306.8)
== END 2023-04-02 13:42 | disposition home or self-care (01) ==
LOC: LAB 13:41
PROVIDERS: ATTEND Nurse Practitioner Family
DX: R10.32 Left lower quadrant pain (principal); E66.01 Morbid (severe) obesity due to excess calories; Z68.43 Body mass index [BMI] 50.0-59.9, adult
CPT/HCPCS: 36415; 80053; 81001; 82150; 82728; 83540; 83690; 84466; 85025; 87086

== ENCOUNTER 2023-04-03 08:21 | Outpatient (CLI) | payer MEDICARE, MEDICAID ==
--- NOTE | 2023-04-03 12:40 | CT Report ---
PROCEDURE: ABDOMEN/PELVIS WO INDICATIONS: LEFT FLANK PAIN TECHNIQUE: A CT scan of the abdomen and pelvis was performed without the use of intravenous contrast. Images we re recorded and evaluated at appropriate window settings. Reformats: coronal and sagittal. For radiat ion dose reduction, the following was used: automated exposure control, adjustment of mA and/or kV ac cording to patient size. COMPARISON: 03/31/2023 FINDINGS: Image quality: Decreased due to body habitus. Lung bases and heart: Clear lung bases. Normal size heart. Small hiatal hernia. Liver: No visible mass. Gallbladder and biliary tree: Surgically absent gallbladder. No visible biliary dilatation. Spleen: No splenomegaly. Pancreas: No pancreatic ductal dilation. Adrenals: No adrenal nodule. Kidneys and ureters: Mild bilateral renal cortical thinning. No definite formed calcifications in the renal collecting systems. No hydronephrosis or new renal mass. Nonspecific, mild and bilateral perin ephric fat stranding. No hydroureter or ureteral calcification. Bowel and peritoneum: Stomach and small bowel are normal. Normal colon. The appendix is not seen. Lymph nodes: No central or retroperitoneal adenopathy. Vessels: No infrarenal aortic aneurysm. PELVIS Reproductive organs: Anteverted uterus with a few calcified uterine fibroids, the largest arising fro m the anterior wall. No suspicious adnexal masses seen. Bladder: Completely decompressed. No visible stone. Pelvic lymph nodes: No pelvic adenopathy by size criteria. Bones: No aggressive osseous abnormality. Other: No significant ventral or inguinal hernia. IMPRESSION: 1. No urinary calcification or evidence of urinary obstruction. 2. Mild, symmetric bilateral renal cortical thinning and fat stranding, nonspecific and likely age-re lated or due to remote infections. 3. Uterine fibroids. Reviewed by: Aisha Egan MD on 04/03/2023 12:39 PM PST Approved by: Aisha Egan MD on 04/03/2023 12:39 PM PST Station ID: [id number]
== END 2023-04-03 08:22 | disposition home or self-care (01) ==
LOC: DI 08:21
PROVIDERS: ATTEND Nurse Practitioner Family
DX: E66.01 Morbid (severe) obesity due to excess calories (principal); Z68.43 Body mass index [BMI] 50.0-59.9, adult; R10.32 Left lower quadrant pain; D25.9 Leiomyoma of uterus, unspecified

== ENCOUNTER 2023-04-11 12:39 | Emergency (ER) | payer MEDICARE, MEDICAID ==
[2023-04-11 13:07] LABS: BASOPHILS # (AUTO) 0.1 10^3/uL (0.0-0.1); BASOPHILS % (AUTO) 0.9 %; EOSINOPHILS # (AUTO) 0.2 10^3/uL (0.0-0.7); EOSINOPHILS % (AUTO) 2.3 %; HCT - HEMATOCRIT 46.8 % (37.0-47.0); HGB - HEMOGLOBIN 14.8 g/dL (12.0-16.0); LYMPHOCYTES # (AUTO) 1.5 10^3/uL (1.5-3.5); LYMPHOCYTES % (AUTO) 21.7 %; MEAN CORPUSCULAR HGB CONC 31.6 g/dL (32.0-36.0); MEAN CORPUSCULAR VOLUME 91.8 fL (81.0-99.0); MEAN PLATELET VOLUME 10.5 fL (7.9-10.8); MONOCYTES # (AUTO) 0.5 10^3/uL (0.0-1.0); MONOCYTES % (AUTO) 6.8 %; NEUTROPHILS # (AUTO) 4.7 10^3/uL (1.5-6.6); PLT - PLATELET COUNT 232 10^3/uL (130-450); RED CELL DISTRIBUTION WIDTH 14.1 % (12.0-15.0); WHITE BLOOD COUNT 6.9 x10^3/uL (4.8-10.8)
[2023-04-11 13:20] LABS: ALBUMIN/GLOBULIN RATIO 1.4 (1.0-2.2); BILIRUBIN,TOTAL 0.6 mg/dL (0.2-1.0); CALCIUM 9.4 mg/dL (8.5-10.3); CREATININE 0.9 mg/dL (0.6-1.3); POTASSIUM 3.8 mmol/L (3.5-4.5); TOTAL PROTEIN 6.9 g/dL (6.4-8.9)
[2023-04-11] MEDS ORDERED: HYDROmorphone 1 MG/ML CARPUJECT IM STA (13:29)
--- NOTE | 2023-04-11 13:31 | ED Physician Documentation ---
PD HPI ABD PAIN - Stated complaint Stated Complaint: LT SIDE PX - Chief complaint Chief Complaint: Abd Pain - History obtained from History obtained from: Patient - Additional information Additional information: 72-year-old woman with history of hypertension and diabetes presents with 2 weeks of left low back pain. There was no injury per se. It radiates from the left low back around to the left side but not quite the left lower quadrant. She was seen by my partner on March 31, she had small hematuria but negative CAT scan. [place] to be possibly a small kidney stone. Subsequently had outpa tient imaging done on April 03, no renal colic. She did have fibroids. Pain can comes and goes, and it is worse if she bends her legs or put her left leg in certain positions. She denies nausea. She has had minor diarrhea with this but she relates that to meds she has been on. No urinary complaints. PD PAST MEDICAL HISTORY - Past Medical History Past Medical History: Yes Cardiovascular: Congestive heart failure, Hypertension, High cholesterol, Atrial fibrillation, Murmur Respiratory: None Endocrine/Autoimmune: Type 2 diabetes GI: None : None HEENT: None Psych: None Musculoskeletal: Osteoarthritis Derm: None - Past Surgical History Past Surgical History: Yes General: Cholecystectomy, Appendectomy Ortho: Knee replacement HEENT: Other - Present Medications Home Medications: Ambulatory Orders Medication Instructions Recorded Confirmed Metformin HCl 500 mg PO DAILY 09/09/14 03/31/23 Aspirin [Adult Low Dose Aspirin EC] 81 mg ORAL DAILY 07/11/16 03/31/23 Lactobacillus Acidophilus 2 tab PO DAILY 12/19/20 03/31/23 [Probiotic Acidophilus] Pregabalin [Lyrica] 50 mg PO BID 12/19/20 03/31/23 Apixaban [Eliquis] 5 mg PO BID 03/07/22 03/31/23 Atorvastatin [Lipitor] 20 mg PO DAILY 03/07/22 03/31/23 Bumetanide 2 mg PO DAILY 03/07/22 03/31/23 Empagliflozin [Jardiance] 10 mg PO DAILY 03/07/22 03/31/23 Metoprolol Succinate 100 mg PO BID 03/07/22 03/31/23 Sacubitril/Valsartan [Entresto 49 1 tab PO BID 03/07/22 03/31/23 mg-51 mg Tablet] Spironolactone [Aldactone] 25 mg PO DAILY 03/07/22 03/31/23 Cyclobenzaprine HCl 1 tab PO TID PRN 03/31/23 03/31/23 Oxycodone HCl/Acetaminophen 1 - 2 each PO Q6H PRN #14 tablet 03/31/23 [Percocet 5-325 mg Tablet] MDD 6 tabs Potassium Chloride [Klor-Con M20] 20 meq PO DAILY 03/31/23 03/31/23 Gabapentin [Neurontin] 1 - 2 mg PO TID PRN #30 cap 04/11/23 Oxycodone HCl/Acetaminophen 1 - 2 each PO Q6H PRN #14 tablet 04/11/23 [Percocet 5-325 mg Tablet] - Allergies Allergies/Adverse Reactions: Allergies Allergy/AdvReac Type Severity Reaction Status Date / Time nystatin Allergy Severe Edema Verified 04/11/23 12:42 etodolac Allergy Unknown Verified 04/11/23 12:42 lisinopril AdvReac Intermediate Cough Verified 04/11/23 12:42 - Social History Does the pt smoke?: No Smoking Status: Never smoker Does the pt drink ETOH?: No Does the pt have substance abuse?: No - Immunizations Immunizations are current?: Yes - POLST Patient has POLST: No PD ED PE NORMAL - Vitals Vital signs reviewed: Yes - General General: Alert and oriented X 3, Other (Comfortable winces with certain motions) - Abdomen Abdomen: Normal bowel sounds, Soft, Non tender - Derm Derm: Normal color, Warm and dry - Extremities Extremities: Other (I am unable to elicit any back tenderness specifically. She is tender over the greater trochanter of the left hip but no pain with internal or external rotation of the left hip. No shingles rash. No inguinal tenderness.) - Neuro Neuro: Alert and oriented X 3, Normal speech Results - Vitals Vitals: Vital Signs - 24 hr 04/11/23 04/11/23 04/11/23 12:43 14:45 16:03 Temperature 36.5 C Heart Rate 100 73 68 Respiratory 16 15 16 Rate Blood Pressure 150/100 H 116/83 H 111/71 O2 Saturation 100 97 98 Oxygen O2 Source [] Room air O2 Source Room air - Labs Labs: Laboratory Tests 04/11/23 04/11/23 04/11/23 13:01 13:01 14:20 WBC 6.9 RBC 5.10 Hgb 14.8 Hct 46.8 MCV 91.8 MCH 29.0 MCHC 31.6 L RDW 14.1 Plt Count 232 MPV 10.5 Neut # (Auto) 4.7 Lymph # (Auto) 1.5 [place] # (Auto) 0.5 Eos # (Auto) 0.2 Baso # (Auto) 0.1 Absolute Nucleated RBC 0.00 Nucleated RBC % 0.0 Sodium 138 Potassium 3.8 Chloride 107 Carbon Dioxide 21 Anion Gap 10.0 BUN 11 Creatinine 0.9 Estimated GFR (MDRD) 61 L Glucose 131 H Calcium 9.4 Total Bilirubin 0.6 AST 11 ALT 10 Alkaline Phosphatase 54 Total Protein 6.9 Albumin 4.0 Globulin 2.9 Albumin/Globulin Ratio 1.4 Lipase 14 Urine Color YELLOW Urine Clarity HAZY Urine pH 6.0 Ur Specific [place] 1.020 Urine Protein 30 H Urine Glucose (UA) 500 H Urine Ketones NEGATIVE Urine Occult Blood LARGE H Urine Nitrite NEGATIVE Urine Bilirubin NEGATIVE Urine Urobilinogen 0.2 (NORMAL) Ur Leukocyte Esterase NEGATIVE Urine RBC 11-25 H Urine WBC 11-25 H Ur Squamous Epith Cells MANY Squamous H Urine Bacteria Many H Ur Microscopic Review INDICATED Urine Culture Comments NOT INDICATED - Rads (name of study) L hip XR Relevant Findings:: Final report received, EMP independent interpretation of test PD Medical Decision Making - ED course ED course: 72-year-old woman presents with left-sided pain, previous workups with 2 CTs, one with contrast, 1 without without really a source of pain. On my examination the only area I am able to elicit tenderness is over the greater trochanter of the left hip. There is no inguinal tenderness. No shingles rash. No evidence of infection. 72-year-old woman presents with pain on my examination is most consistent with hip pain laterally. X-rays of the hip were negative and blood work including CBC and CMP were normal. Urinalysis was contaminated but she continues to have some blood in there, and she did previously. I do not think it is related to the current pain but discussed with her that it would be reasonable to follow-up with urology for evaluation of that. She was initially given 1 mg of IM Dilaudid which helped not much, and subsequently received IM Toradol with improvement. She was ambulatory here with a walker without overt pain. Departure - Departure Disposition: 01 Home, Self Care Clinical Impression: Left hip pain Condition: Good Record reviewed to determine appropriate education?: Yes Instructions: ED Acute Pain [facility] Follow-Up: Luis Daniel Lees MD [Provider Admit Priv/Credential] - [facility]opedic [facility] [Provider Group] Prescriptions: Gabapentin [Neurontin] 1 - 2 mg PO TID PRN #30 cap PRN Reason: pain Oxycodone HCl/Acetaminophen [Percocet 5-325 mg Tablet] 1 - 2 each PO Q6H PRN #14 tablet PRN Reason: pain Comments: I sent your prescriptions electronically to the [facility] in [place]. As discussed, it seems like the source of your pain is the hip as opposed to something internal. Lab work was unremarkable and the x-rays looked okay. You did still have the blood in your urine so it is reasonable to follow-up with your urologist, but I think more pressing would be to follow-up with orthopedics. The numbers are on this form, call both for an appointment. I sent your prescription electronically to the [facility] in [place]. Call your doctor to arrange a follow-up appointment, make the next available appointment. In the interim, return anytime if worse or if new symptoms develop. I am prescribing a short course of narcotic pain medication for you. These are potentially dangerous and addictive medications that should be used carefully. These medications may constipate you. Take an askc-kfv-indegvq stool softener (docusate) twice daily with plenty of water while taking these medications. If you go 24 hours without a bowel movement, take ltig-rty-vwxxuam miralax, per package instructions. Do not drink or drive while taking these medications. If you received narcotic or sedating medications while in the emergency department, do not drive for 24 hours. Store this medication in a safe, secure place and out of reach of children. It is a violation of federal law to give or sell this medication to another person or to use in a manner other than prescribed. The ED will not refill narcotic prescriptions, including prescriptions lost or stolen. To dispose of unwanted medications: 1. [facility]'s Office provides a drop box for medication in pill form only (no liquids) 8:00 am to 4:30 p.m. Saturday-Saturday in the lobby of [facility], [address] Empty pills into ziplock bag before disposal. Call [phone] for information. 2.[employer] is a free service available to all [facility] residents. Go to [email or web address]/[email or web address]/ Note that many narcotic pain relievers also contain Tylenol/acetaminophen. Please ensure that your total dose of acetaminophen from all sources does not exceed 3 g (3000 mg) per day. Yesterday Forms: PCP List Discharge Date/Time: 04/11/23 16:03
--- NOTE | 2023-04-11 14:10 | XRAY Report ---
PROCEDURE: Hip w/Pelvis 2-3V LT INDICATIONS: hip pain TECHNIQUE: AP pelvis with lateral view(s) of the left hip(s). COMPARISON: None. FINDINGS: Bones: Diagnostic information is limited secondary to increased BMI. No obvious fractures or disloca tions. No suspicious bony lesions. Soft tissues: No suspicious soft tissue calcifications or masses. IMPRESSION: Suboptimal study. No obvious fractures or dislocations. Consider CT pelvis and hip if continue to nav pect acute fracture. Reviewed by: Kel Hernandez MD on 04/11/2023 2:09 PM PST Approved by: Kel Hernandez MD on 04/11/2023 2:09 PM PST Station ID: [id number]
[2023-04-11 14:24] LABS: BILIRUBIN,URINE NEGATIVE (NEGATIVE); GLUCOSE, URINE (UA) 500 mg/dL (NEGATIVE); KETONES,URINE (UA) NEGATIVE (NEGATIVE); LEUKOCYTE ESTERASE, URINE NEGATIVE (NEGATIVE); NITRITE,URINE NEGATIVE (NEGATIVE); OCCULT BLOOD,URINE LARGE (NEGATIVE); PROTEIN,URINE 30 mg/dL (NEGATIVE); UROBILINOGEN,URINE 0.2 (NORMAL) E.U./dL (NORMAL)
[2023-04-11 14:25] LABS: CLARITY,URINE HAZY (CLEAR)
[2023-04-11 14:31] LABS: BACTERIA,URINE Many /HPF (None Seen); SQUAMOUS EPITHELIAL CELL,UR MANY Squamous (<= Few)
[2023-04-11] MEDS ORDERED: KETOROLAC 60 MG/2 ML VIAL IM STA (14:43)
[2023-04-11 16:09] VITALS: BP 111/71; O2SAT 98
== END 2023-04-11 16:03 | disposition home or self-care (01) ==
LOC: ED 12:39
DX: M25.552 Pain in left hip (principal); I48.91 Unspecified atrial fibrillation; Z79.01 Long term (current) use of anticoagulants; I10 Essential (primary) hypertension
CPT/HCPCS: 36415; 73502; 80053; 81001; 83690; 85025; 96372; 99284; J1170; 81003; 87086

== ENCOUNTER 2023-04-17 08:00 | Outpatient (CLI) | payer MEDICARE, MEDICAID ==
[2023-04-17 18:28] LABS: CLARITY,URINE HAZY (CLEAR); GLUCOSE, URINE (UA) >=1000 mg/dL (NEGATIVE); KETONES,URINE (UA) TRACE mg/dL (NEGATIVE); LEUKOCYTE ESTERASE, URINE NEGATIVE (NEGATIVE); NITRITE,URINE NEGATIVE (NEGATIVE); OCCULT BLOOD,URINE LARGE (NEGATIVE); PH,URINE 5.5 PH (5.0-7.5); PROTEIN,URINE 100 mg/dL (NEGATIVE); UROBILINOGEN,URINE 0.2 (NORMAL) E.U./dL (NORMAL)
[2023-04-17 18:29] LABS: BILIRUBIN,URINE NEGATIVE (NEGATIVE); ICTOTEST,URINE NEGATIVE
[2023-04-17 19:08] LABS: BACTERIA,URINE Moderate /HPF (None Seen); SQUAMOUS EPITHELIAL CELL,UR MOD Squamous (<= Few); WBC,URINE 0-3 /HPF (0-5)
[2023-04-17 19:09] LABS: CASTS, URINE 0-2 Hyaline Casts /LPF; MUCUS,URINE Few Strands
== END 2023-04-17 23:59 | disposition home or self-care (01) ==
LOC: LAB.N 08:00
PROVIDERS: ATTEND Nurse Practitioner
DX: R10.9 Unspecified abdominal pain (principal); R31.9 Hematuria, unspecified
CPT/HCPCS: 81001; 81003; 87086

== ENCOUNTER 2023-04-26 08:00 | Outpatient (CLI) | payer MEDICARE, MEDICAID ==
[2023-04-26 17:15] LABS: BILIRUBIN,URINE NEGATIVE (NEGATIVE); GLUCOSE, URINE (UA) >=1000 mg/dL (NEGATIVE); KETONES,URINE (UA) NEGATIVE (NEGATIVE); LEUKOCYTE ESTERASE, URINE NEGATIVE (NEGATIVE); NITRITE,URINE NEGATIVE (NEGATIVE); OCCULT BLOOD,URINE MODERATE (NEGATIVE); PROTEIN,URINE 30 mg/dL (NEGATIVE); UROBILINOGEN,URINE 1 (NORMAL) E.U./dL (NORMAL)
[2023-04-26 17:27] LABS: BACTERIA,URINE Few /HPF (None Seen); RBC,URINE 6 /HPF (0-5); SQUAMOUS EPITHELIAL CELL,UR FEW Squamous (<= Few); WBC,URINE 0-3 /HPF (0-5)
[2023-04-26 17:36] LABS: CLARITY,URINE CLEAR (CLEAR)
== END 2023-04-26 23:59 | disposition home or self-care (01) ==
LOC: LAB 08:00
PROVIDERS: ATTEND Urology
DX: R31.9 Hematuria, unspecified (principal)
CPT/HCPCS: 81001; 87086

== ENCOUNTER 2023-05-01 13:40 | Outpatient (CLI) | payer MEDICARE, MEDICAID ==
--- NOTE | 2023-05-01 18:43 | MRI Report ---
PROCEDURE: LUMBAR SPINE WO INDICATIONS: LEFT LUMBAR RADICULOPATHY TECHNIQUE: Noncontrast sagittal T1 spin echo and T2 fast echo, sagittal STIR, axial T1 and T2 fast spin echo thr ough the lumbar spine. In cases with scoliosis, additional coronal T2 fast spin echo may be performe d. COMPARISON: 08/15/2021 FINDINGS: Image quality: Excellent. Alignment and Curvature: There is minimal retrolisthesis seen at L5-S1. Bone Marrow: Marrow is of normal overall signal. Scattered foci of T1-weighted hyperintensity and T 2-weighted hyperintensity are seen, without increased STIR signal. These foci are attributed to benig n vertebral body hemangiomas. No acute vertebral body compression fractures. Spinal Cord: Conus medullaris terminates at the L1 level. Visualized cord demonstrates normal signa l and size. Paraspinous Soft Tissues: No paravertebral masses. T12-L1: The disc height is well-preserved. There is loss of disc signal seen. Mild disc bulge is se en. There is at least moderate right-sided and no left-sided neuroforaminal narrowing. No central can al narrowing is seen. These imaging findings are similar to the images of the prior examination. L1-L2: The disc height is well-preserved. There is loss of disc signal seen. Mild disc bulge is seen. Mild facet hypertrophy is seen. There is moderate left-sided and mild right-sided neuroforamin al narrowing. No significant central canal narrowing is seen. These imaging findings are stable comp ared to the prior examination. L2-L3: Mental loss neck mild bulge and a moderate facet there is mild left-sided and moderate righ t-sided neuroforaminal narrowing. No central canal narrowing is seen. No significant change compared to the prior examination. L3-L4: The disc height is well-preserved. There is loss of disc signal seen. Moderate disc bulge i s seen at this level. Moderate to prominent facet hypertrophy is seen. Associated hypertrophy of the ligamentum flavum can be seen. There is at least moderate bilateral neuroforaminal narrowing seen. Co mpression is seen upon the exiting nerve roots. Moderate central canal narrowing is seen. These rachel ging findings are similar to the images of the prior examination. L4-L5: Medical loss mild to moderate disc bulge is seen. At least moderate facet hypertrophy is see n. There is fluid seen within the right facet joint. There is at least moderate bilateral neuroforami nal narrowing seen. Compression is seen upon the exiting nerve roots. Mild central canal narrowing i s seen. These imaging findings are similar to the images of the prior examination. L5-S1: Moderate loss of disc height and signal are seen. Mild disc bulge is seen. Mild facet hype rtrophy is seen. There is mild left-sided neuroforaminal narrowing. No significant central canal narr owing is seen. These imaging findings are similar to the images of the prior examination. IMPRESSION: Multiple levels of lumbar spine degenerative change can be seen, without significant progression comp ared to 2021. Reviewed by: Gianni Bhardwaj MD on 05/01/2023 5:42 PM [facility] Approved by: Gianni Bhardwaj MD on 05/01/2023 5:42 PM [facility] Station ID: [id number]
== END 2023-05-01 13:41 | disposition home or self-care (01) ==
LOC: DI 13:40
PROVIDERS: ATTEND Nurse Practitioner
DX: M51.16 Intervertebral disc disorders with radiculopathy, lumbar region (principal); M48.061 Spinal stenosis, lumbar region without neurogenic claudication; M47.26 Other spondylosis with radiculopathy, lumbar region; M51.37 Other intervertebral disc degeneration, lumbosacral region; M48.07 Spinal stenosis, lumbosacral region; M47.817 Spondylosis without myelopathy or radiculopathy, lumbosacral region

== ENCOUNTER 2023-08-26 08:07 | Outpatient (CLI) | payer MEDICARE, MEDICAID ==
[2023-08-26 08:58] LABS: ALBUMIN 3.9 g/dL (3.2-5.5); ALBUMIN/GLOBULIN RATIO 1.4 (1.0-2.2); ALKALINE PHOSPHATASE 68 IU/L (42-121); ALT ALANINE AMINOTRANSFERASE 5 IU/L (10-60); AST ASPARTATE AMINOTRANSFERASE 8 IU/L (10-42); BILIRUBIN,TOTAL 0.8 mg/dL (0.2-1.0); BUN - BLOOD UREA NITROGEN 16 mg/dL (6-20); CALCIUM 9.6 mg/dL (8.5-10.3); CARBON DIOXIDE - CO2 27 mmol/L (21-32); CHLORIDE 104 mmol/L (101-111); CHOL/HDL RATIO 2.5 (<4.4); CHOLESTEROL 142 mg/dL; CREATININE 1.1 mg/dL (0.6-1.3); GFR - MDRD 49 (>89); GLUCOSE 117 mg/dL (74-104); HDL CHOLESTEROL 56 mg/dL; LDL CHOLESTEROL,CALCULATED 68 mg/dL; LDL/HDL RATIO 1.2 (<4.4); POTASSIUM 4.2 mmol/L (3.5-4.5); SODIUM 139 mmol/L (135-145); TOTAL PROTEIN 6.7 g/dL (6.4-8.9); TRIGLYCERIDES 92 mg/dL (48-352); VLDL CHOLESTEROL 18 mg/dL
[2023-08-26 10:21] LABS: ESTIMATED AVERAGE GLUCOSE 126 mg/dL (70-100)
== END 2023-08-26 08:08 | disposition home or self-care (01) ==
LOC: LAB 08:07
PROVIDERS: ATTEND Physician Assistant Medical
DX: E11.9 Type 2 diabetes mellitus without complications (principal)
CPT/HCPCS: 36415; 80053; 80061; 83036; 83721